=== PATIENT | female | born 1995 | race Caucasian/White ===

== ENCOUNTER 2016-08-18 16:11 | Emergency (ER) | payer MEDICAID ==
[~2016-08-18] VITALS: Ht 160 cm; Wt 72.6 kg
[~2016-08-18 16:11] MED LIST: BCP; BIRTH CONTROL PO; CEPH500C PO; CLIN300C3 PO; CYCL5TAB11 PO; FAMO20TA5 PO; HYDR-3714 PO; HYDR25CA5 PO; HYDR5TAB2 PO; Hydrocodone Bit/Acetaminophen PO; IBUP-1773 PO; LUTERA BIRTH CONTROL PO; NAPR-243 PO; NAPR-684 PO; ONDA-42 SL; ONDAN4ODT PO; PREN1TAB71 PO; TORADOL 10 MG PO; TRAM50TA2 PO
--- OUTSIDE RECORDS SUMMARY | 2016-08-18 16:16 | XMS REPORT | Continuity of Care Document ---
Author Author [facility] Organization [facility] Address Unknown Phone Unavailable Care Team Providers Care Test Borer Helper Name Role Phone PCP Unavailable Source Comments Some departments are not documenting in the electronic medical record. If you do not see the information that you expected, contact Release of Information in the Health Information Management department at [phone] for further assistance in locating additional records.[facility] Active Allergies and Adverse Reactions Allergen Noted Date Severity Reactions Comments Doxycycline 08/24/2014 RASH Current Medications Prescription Sig. Disp. Refills Start End Date Status Date NAPROXEN PO Take 1 Tab by mouth as Active Needed. HYDROcodone/acetaminophen Take 1 Tab by mouth every Active (NORCO; VICODIN) 5-325 mg 4 hours as needed. tablet fluconazole (DIFLUCAN) Take one tab by mouth 2 Tab 0 02/22/20 Active 150 mg tablet now, then repeat dose in 15 72 hrs. Active Problems Problem Noted Date Vaginal discharge 02/14/2015 Depressive disorder, not elsewhere classified 09/15/2014 Unspecified symptom associated with female genital organs 08/24/2014 LLQ pain 08/24/2014 Myalgia and myositis, unspecified 08/24/2014 Coping with chronic pain 08/24/2014 Ilioinguinal neuralgia of left side 08/24/2014 Chronic pain syndrome 08/24/2014 Obesity 08/24/2014 Social History Tobacco Use Types Packs/Day Years Used Date Never Smoker Smokeless Tobacco: Never Used Alcohol Use Drinks/Week oz/Week Comments Yes Last Filed Vital Signs Vital Sign Reading Time Taken Blood Pressure 116/74 02/12/2015 3:07 PM CDT Pulse - - Temperature - - Respiratory Rate - - Height 1.6 m (5' 2.99") 02/12/2015 3:07 PM CDT Weight 81.874 kg (180 lb 8 oz) 02/12/2015 3:07 PM CDT Body Mass Index 31.98 02/12/2015 3:07 PM CDT Oxygen Saturation - - Plan of Care Health Maintenance Due Date Last Done Comments Physical (Comprehensive) 2000 Exam Hpv Vaccines (#1) 2004 Pertussis Vaccine 2004 Tetanus Vaccine 2010 Cervical Cancer Screening 2014 Influenza Vaccine 03/27/2016 Results from Last 3 Months Not on file
[2016-08-18 16:56] LABS: BILIRUBIN,URINE NEGATIVE (NEGATIVE); KETONES,URINE NEGATIVE (NEGATIVE); LEUKOCYTE ESTERASE ,URINE 1+ (NEGATIVE); NITRITE,URINE NEGATIVE (NEGATIVE); PH,URINE 6 (5-9); PROTEIN,URINE NEGATIVE (NEGATIVE); UROBILINOGEN,URINE NORMAL (NORMAL)
[2016-08-18] MEDS ORDERED: AZITHROMYCIN 250 MG TAB (ZITHROMAX) PO ONE (18:30)
[2016-08-18] MEDS ORDERED: LIDOCAINE 1% INJ 20 ML (XYLOCAINE) VIAL INJ ONE (18:30)
[2016-08-18] MEDS ORDERED: cefTRIAXone 1 GM (ROCEPHIN) VIAL IM ONE (18:30)
--- NOTE | 2016-08-18 18:30 | ED GU-Female ---
General Chief Complaint: Abdominal/GI Problems Stated Complaint: ABD PAIN/PELVIC PAIN Nursing Triage Note: LEFT SIDED ABD PAIN FOR A COUPLE OF MONTHS ET NOW COMPLAINS OF RIGHT SIDED ABD PAIN STARTING AT 1600. PT GRABBING AT LEFT SIDE DURING INTERVIEW. HX OF A MISCARRIAGE 2 MONTHS AGO. Nursing Sepsis Screen: No Definite Risk Source: patient Exam Limitations: no limitations History of Present Illness Time seen by provider: 16:23 Initial Comments See nurse's triage note above. This 21-year-old woman presents to the emergency room with worsening lower abdominal pain. Today it is developing in the right lower quadrant and has previously involved the left lower abdomen. She reports having a miscarriage about 2 months ago. It was believed she passed all of the products of conception and an ultrasound was not performed afterward. She has had some vaginal discharge and pain with intercourse. She does have a history of bacterial vaginosis. She denies any nausea, vomiting, diarrhea, fever, constipation, or urinary changes. She has resumed sexual activity after her miscarriage. Allergies and Home Medications Allergies Coded Allergies: doxycycline (Verified Allergy, Unknown, 05/18/14) Constitutional: no symptoms reported EENTM: no symptoms reported Respiratory: no symptoms reported Cardiovascular: no symptoms reported Gastrointestinal: see HPI Genitourinary: see HPI : No Musculoskeletal: no symptoms reported Skin: no symptoms reported Psychiatric/Neurological: No Symptoms Reported Endocrine: No Symptoms Reported Hematologic/Lymphatic: No Symptoms Reported Past Elkcrzs-Ffnvfs-Mnmfir Hx Patient Social History Alcohol Use: Denies Use Recreational Drug Use: No Smoking Status: Never a Smoker Recent Foreign Travel: No Contact w/Someone Who Travel: No Recent Infectious Disease Expo: No Recent Hopitalizations: No Physical Abuse Screen: No Sexual Abuse: No Immunizations Up To Date Tetanus Booster (TDap): Less than 5yrs Date of Pneumonia Vaccine: Apr 28, 2011 Date of Influenza Vaccine: Jun 07, 2014 Surgeries HX Surgeries: Yes (KNEE SCOPESX3, WISDOM TEETH, Cyst removed from bilat ovaries ) Surgeries: Orthopedic Respiratory Hx Respiratory Disorders: No Cardiovascular Hx Cardiac Disorders: No Neurological Hx Neurological Disorders: No Reproductive System : No Hx Reproductive Disorders: Yes (CHRONIC LT PELVIC PAIN) Sexually Transmitted Disease: No HIV/AIDS: No Female Reproductive Disorders: Denies Genitourinary Hx Genitourinary Disorders: No Gastrointestinal Hx Gastrointestinal Disorders: No Musculoskeletal Hx Musculoskeletal Disorders: No Endocrine Hx Endocrine Disorders: No HEENT HX ENT Disorders: No Cancer Hx Cancer: No Psychosocial Hx Psychiatric Problems: No Behavioral Health Disorders: Anxiety Integumentary HX Skin/Integumentary Disorder: No Blood Transfusions Hx Blood Disorders: No Adverse Reaction to a Blood Tr: No Family Medical History Significant Family History: Cancer (brain and breast) Family Medial History: Cancer 03 FATHER Family history: Hypertension 03 FATHER Hypercholesterolemia 03 MOTHER No Family History of: Abdominal aortic aneurysm Enrique's disease Alcoholism Aphasia Physical Exam Vital Signs Vital Sign - Last 12Hours 08/18/16 08/18/16 16:42 18:57 Temp 97.3 Pulse 102 Resp 18 B/P 137/84 Pulse Ox 98 Capillary Refill : Less Than 3 Seconds General Appearance: WD/WN no apparent distress HEENT: PERRL/EOMI normal ENT inspection Neck: normal inspection Cardiovascular: regular rate, rhythm no edema no murmur Respiratory: lungs clear normal breath sounds no respiratory distress no accessory muscle use Gastrointestinal: normal bowel sounds soft tenderness (suprapubic and right lower quadrant, mild) Genital/Rectal: normal genital exam normal vaginal exam Pelvic: normal external exam normal adnexa no cerv. 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 Ultrasound was normal. Pelvic exam was performed due to history of vaginal infections. Due to presence of WBC on the preliminary micro-study, patient was empirically treated with antibiotics. Diagnostic Imaging Diagonstic Imaging: Ultrasound Plain Films/CT/US/NM/MRI: pelvis Comments NAME: TANAY RAYGOZA [facility] REC#: [id number] PT STATUS: DEP ER : 1995 PHYSICIAN: MOSHE TRAYLOR MD ADMIT DATE: 08/18/16/ER Signed Date of Exam: 08/18/16 US NON OB PELVIS COMP/TRANSVAG INDICATION: Miscarriage two months ago. Low abdominal pain. FINDINGS: Transabdominal and transvaginal imaging shows myometrium to be normal. Endometrial stripe is uniform measuring 1 cm. No evidence of retained products. Color Doppler imaging shows no hypervascularity along the endometrium. The right ovary measures 4.7 x 2.3 x 2.7 cm. The left ovary measures 4 x 2.7 x 2.5 cm. There are multiple follicular cysts bilaterally with normal color flow. There is no free fluid in the pelvis. IMPRESSION: Normal pelvic ultrasound with no evidence of retained products of conception. Dictated by: Dictated on workstation # [id number] Dict: 08/18/161908 Trans: 08/18/161934 AS6 [id number] Interpreted by: JAN MCDANIELS MD Electronically signed by:JAN MCDANIELS MD 08/18/161937 Departure Impression Impression: Primary Impression: Pelvic pain Additional Impression: Vaginal discharge Disposition: HOME, SELF-CARE Condition: Stable Departure-Patient Inst. Decision time for Depature: 18:29 Referrals: YVETTE SALOMON MD (PCP/Family) Primary Care Physician Patient Instructions: Acute Pelvic Pain Add. Discharge Instructions: You may take Tylenol and/or ibuprofen for pain. Follow-up with your women's health provider next week to review final culture results. No intercourse or anything vaginally until culture results are reviewed. Return to the emergency room if symptoms worsen. All discharge instructions reviewed with patient and/or family. Voiced understanding. MOSHE TRAYLOR MD Aug 18, 2016 18:30 All discharge instructions reviewed with patient and/or family. Voiced understanding. MOSHE TRAYLOR MD Aug 18, 2016 18:30
[2016-08-18 18:57] VITALS: BP 121/78
--- NOTE | 2016-08-18 19:14 | Diagnostic Imaging Report ---
INDICATION: Miscarriage two months ago. Low abdominal pain. FINDINGS: Transabdominal and transvaginal imaging shows myometrium to be normal. Endometrial stripe is uniform measuring 1 cm. No evidence of retained products. Color Doppler imaging shows no hypervascularity along the endometrium. The right ovary measures 4.7 x 2.3 x 2.7 cm. The left ovary measures 4 x 2.7 x 2.5 cm. There are multiple follicular cysts bilaterally with normal color flow. There is no free fluid in the pelvis. IMPRESSION: Normal pelvic ultrasound with no evidence of retained products of conception. Dictated by: Dictated on workstation # [id number]
[2016-12-04] MEDS ORDERED: HYDR-757 PO (09:17)
[2016-12-04] MEDS ORDERED: IBUP-1773 PO (09:17)
== END 2016-08-18 18:57 | disposition home or self-care (01) ==
LOC: EDUNIT# 16:11 → ER 16:12
DX: R10.2 Pelvic and perineal pain (principal); N89.8 Other specified noninflammatory disorders of vagina
CPT/HCPCS: 36415; 76830; 76856; 81000; 84703; 87070; 87210; 87220; 87491; 87591; 96372

== ENCOUNTER 2016-10-31 18:56 | Emergency (ER) | payer MEDICAID ==
[~2016-10-31] VITALS: Ht 160 cm; Wt 78.5 kg
[2016-10-31 19:57] LABS: BILIRUBIN,URINE NEGATIVE (NEGATIVE); KETONES,URINE NEGATIVE (NEGATIVE); LEUKOCYTE ESTERASE ,URINE 1+ (NEGATIVE); NITRITE,URINE NEGATIVE (NEGATIVE); PH,URINE 7 (5-9); PROTEIN,URINE NEGATIVE (NEGATIVE); UROBILINOGEN,URINE NORMAL (NORMAL)
--- NOTE | 2016-10-31 19:58 | ED Abdominal Pain ---
General Chief Complaint: Abdominal/GI Problems Stated Complaint: PELVIC PAIN Source of Information: Patient History of Present Illness Time Seen By Provider: 19:45 Initial Comments C/O PELVIC PAIN--ONGOING FOR 3 YEARS, AND "CAME BACK" 2 DAYS AGO--IS SIMILAR TO PAIN SHE HAS HAD IN THE PAST STATES PAIN IS WORSE TONIGHT AND STATES "PRESSURE IN MY PELVIC AND ALL ACROSS AND IT'S UNCOMFORTABLE TO WALK" HAS NOT TAKEN ANYTHING FOR PAIN AT ANY TIME. NO FEVER NO NAUSEA/VOMITING/DIARRHEA, HAD A NORMAL BM LAST PM NO URINARY SYMPTOMS LMP--IS SPOTTING NOW, HAD FULL PERIOD SOMETIME LAST MONTH--HAS MIRENA IUD IN PLACE. PT HAD A MISCARRIAGE 05/2016--NO D&C REQUIRED. HAD A DX LAPAROSCOPY FOR THIS PROBLEM 2 YEARS AGO (04/2014)--STATES SHE HAD AN OVARIAN CYSTS, WHICH WERE REMOVED. NO VAGINAL DISCHARGE OR DYSPAREUNIA PT WITH MULTIPLE ER VISITS FOR THIS SAME COMPLAINT--WORK UP'S ESSENTIALLY NEGATIVE EXCEPT FOR OVARIAN CYSTS. PCP: DR. SALOMON PIGMENT PROCESSOR: DR. JONES Allergies and Home Medications Allergies Coded Allergies: doxycycline (Verified Allergy, Unknown, 05/18/14) Review of Systems Constitutional: no symptoms reported, No chills, No diaphoresis, No fever Respiratory: No Symptoms Reported Cardiovascular: No Symptoms Reported Gastrointestinal: See HPI, Denies Nausea, Denies Vomiting Genitourinary: See HPI, Denies Burning, Denies Discharge, Denies Frequency, Denies Flank Pain, Denies Hematuria, Denies Urgency Musculoskeletal: no symptoms reported, No back pain Skin: no symptoms reported Psychiatric/Neurological: No Symptoms Reported Endocrine: No Symptoms Reported Hematologic/Lymphatic: No Symptoms Reported Past Ikmiaxb-Onyjwt-Itahps Hx Patient Social History Recent Foreign Travel: No Contact w/Someone Who Travel: No Recent Hopitalizations: No Immunizations Up To Date Tetanus Booster (TDap): Less than 5yrs Date of Pneumonia Vaccine: Apr 28, 2011 Date of Influenza Vaccine: Jun 07, 2014 Surgeries HX Surgeries: Yes (KNEE SCOPESX3--LEFT X 2, RIGHT X 1, WISDOM TEETH, Cyst removed from bilat ovaries 04/2014) Surgeries: Orthopedic Respiratory Hx Respiratory Disorders: No Cardiovascular Hx Cardiac Disorders: No Neurological Hx Neurological Disorders: No Reproductive System Hx Reproductive Disorders: Yes (CHRONIC PELVIC PAIN) Sexually Transmitted Disease: No HIV/AIDS: No Female Reproductive Disorders: Denies, Ovarian Cyst PIGMENT PROCESSOR History: IUD Genitourinary Hx Genitourinary Disorders: No Gastrointestinal Hx Gastrointestinal Disorders: No Musculoskeletal Hx Musculoskeletal Disorders: No Endocrine Hx Endocrine Disorders: No HEENT HX ENT Disorders: No Cancer Hx Cancer: No Psychosocial Hx Psychiatric Problems: Yes Behavioral Health Disorders: Anxiety Integumentary HX Skin/Integumentary Disorder: No Blood Transfusions Hx Blood Disorders: No Adverse Reaction to a Blood Tr: No Family Medical History Significant Family History: Cancer Family Medial History: Cancer (father has terminal brain cancer. ) 03 FATHER Family history: Hypertension (father ) 03 FATHER Hypercholesterolemia 03 MOTHER No Family History of: Abdominal aortic aneurysm Enrique's disease Alcoholism Aphasia Physical Exam Vital Signs VS - Last 72 Hours, by Label 10/31/16 19:10 Temp 98.5 Pulse 100 Resp 18 B/P (MAP) 138/84 Pulse Ox 97 O2 Delivery Room Air Capillary Refill : General Appearance: WD/WN, no apparent distress, other (WALKS UPRIGHT AND MOVES QUICKLY WITHOUT DIFFUCULTY.SITTING MONTSERRATIAN-STYLE. DOES NOT APPEAR TO BE IN ANY DISCOMFORT AT THIS TIME. 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, no motor/sensory deficits, alert, normal mood/affect, oriented x 3 Skin: normal color, warm/dry Progress/Results/Core Measures Results/Orders Lab Results Laboratory Tests Test 10/31/16 19:50 10/31/16 19:55 Range/Units Urine Color YELLOW Urine Clarity CLEAR Urine pH 7 5-9 Urine Specific [place] 1.015 L 1.016-1.022 Urine Protein NEGATIVE NEGATIVE Urine Glucose (UA) NEGATIVE NEGATIVE Urine Ketones NEGATIVE NEGATIVE Urine Nitrite NEGATIVE NEGATIVE Urine Bilirubin NEGATIVE NEGATIVE Urine Urobilinogen NORMAL NORMAL MG/DL Urine Leukocyte Esterase 1+ H NEGATIVE Urine RBC (Auto) NEGATIVE NEGATIVE Urine RBC NONE /HPF Urine WBC 2-5 /HPF Urine Squamous Epithelial Cells 5-10 /HPF Urine Crystals NONE /LPF Urine Bacteria TRACE /HPF Urine Casts NONE /LPF Urine Mucus NEGATIVE /LPF Urine Culture Indicated NO White Blood Count 8.1 4.3-11.0 10^3/uL Red Blood Count 4.55 4.35-5.85 10^6/uL Hemoglobin 13.8 11.5-16.0 G/DL Hematocrit 41 35-52 % Mean Corpuscular Volume 90 80-99 FL Mean Corpuscular Hemoglobin 30 25-34 PG Mean Corpuscular Hemoglobin Concent 34 32-36 G/DL Red Cell Distribution Width 12.0 10.0-14.5 % Platelet Count 244 130-400 10^3/uL Mean Platelet Volume 9.5 7.4-10.4 FL Neutrophils (%) (Auto) 49 42-75 % Lymphocytes (%) (Auto) 41 12-44 % Monocytes (%) (Auto) 6 0-12 % Eosinophils (%) (Auto) 3 0-10 % Basophils (%) (Auto) 1 0-10 % Neutrophils # (Auto) 4.0 1.8-7.8 X 10^3 Lymphocytes # (Auto) 3.3 1.0-4.0 X 10^3 Monocytes # (Auto) 0.5 0.0-1.0 X 10^3 Eosinophils # (Auto) 0.2 0.0-0.3 10^3/uL Basophils # (Auto) 0.0 0.0-0.1 10^3/uL Sodium Level 142 135-145 MMOL/L Potassium Level 3.8 3.6-5.0 MMOL/L Chloride Level 105 98-107 MMOL/L Carbon Dioxide Level 28 21-32 MMOL/L Anion Gap 9 5-14 MMOL/L Blood Urea Nitrogen 7 7-18 MG/DL Creatinine 0.81 0.60-1.30 MG/DL Estimat Glomerular Filtration Rate > 60 BUN/Creatinine Ratio 9 Glucose Level 99 70-105 MG/DL Calcium Level 9.6 8.5-10.1 MG/DL Total Bilirubin 0.3 0.1-1.0 MG/DL Aspartate Amino Transf (AST/SGOT) 21 5-34 U/L Alanine Aminotransferase (ALT/SGPT) 22 0-55 U/L Alkaline Phosphatase 79 40-136 U/L Total Protein 7.3 6.4-8.2 G/DL Albumin 4.5 3.2-4.5 G/DL My Orders Orders - KENDELL WRAY DO Saline Lock/Iv-Start (10/31/16 19:51) Ct Abdomen/Pelvis W (10/31/16 20:16) Iohexol Injection (Omnipaque 350 Mg/Ml 1 (10/31/16 20:30) Ns (Ivpb) (Sodium Chloride 0.9% Ivpb Bag (10/31/16 20:30) Medications Given in ED Current Medications Medications Dose Ordered Sig/Aime Route Start Time Stop Time Status Last Admin Dose Admin Iohexol 100 ml ONCE ONCE IV 10/31/16 20:30 10/31/16 20:31 DC 10/31/16 20:26 100 ML Sodium Chloride 100 ml ONCE ONCE IV 10/31/16 20:30 10/31/16 20:31 DC 10/31/16 20:26 80 ML Vital Signs/I&O Vital Sign - Last 12Hours 10/31/16 19:10 Temp 98.5 Pulse 100 Resp 18 B/P (MAP) 138/84 Pulse Ox 97 O2 Delivery Room Air Diagnostic Imaging Comments CT ABDOMEN/PELVIS--NO ACUTE PROCESS, PER RADIOLOGIST REPORT @ 2100 Reviewed: Reviewed by Me Departure Impression Impression: Primary Impression: Chronic pelvic pain in female Additional Impression: Urinary tract infection Disposition: HOME, SELF-CARE Condition: Stable Departure-Patient Inst. Referrals: FLAQUITO JONES DANIEL J MD (PCP/Family) Primary Care Physician Patient Instructions: Chronic Pelvic Pain (DC), Urinary Tract Infection, Adult (DC) Add. Discharge Instructions: LOTS OF CLEAR LIQUIDS--NO COFFEE, POP OR TEA FOLLOW UP WITH DR. JONES ON THURSDAY IF NO BETTER All discharge instructions reviewed with patient and/or family. Voiced understanding. Scripts Naproxen (Naproxen) 500 Mg Tablet 500 MG PO BID, #20 TAB Prov: VARUN WRAYA K DO 10/31/16 Ciprofloxacin HCl (Cipro) 500 Mg Tablet 500 MG PO BID, #20 TAB Prov: KENDELL WRAY DO 10/31/16 KENDELL WRAY DO Oct 31, 2016 19:58
[2016-10-31 20:01] LABS: BASOPHILS % (AUTO) 1 % (0-10); EOSINOPHILS # (AUTO) 0.2 10^3/uL (0.0-0.3); EOSINOPHILS % (AUTO) 3 % (0-10); LYMPHOCYTES # (AUTO) 3.3 X 10^3 (1.0-4.0); LYMPHOCYTES % (AUTO) 41 % (12-44); MEAN CORPUSCULAR HEMOGLOBIN 30 PG (25-34); MEAN CORPUSCULAR HGB CONC 34 G/DL (32-36); MEAN CORPUSCULAR VOLUME 90 FL (80-99); MEAN PLATELET VOLUME 9.5 FL (7.4-10.4); MONOCYTES # (AUTO) 0.5 X 10^3 (0.0-1.0); MONOCYTES % (AUTO) 6 % (0-12); NEUTROPHILS % (AUTO) 49 % (42-75); PLATELET COUNT 244 10^3/uL (130-400); RED BLOOD COUNT 4.55 10^6/uL (4.35-5.85); WHITE BLOOD COUNT 8.1 10^3/uL (4.3-11.0)
[2016-10-31 20:25] LABS: ALANINE AMINOTRANSFERASE 22 U/L (0-55); ALBUMIN 4.5 G/DL (3.2-4.5); ANION GAP 9 MMOL/L (5-14); ASPARTATE AMINO TRANSFERASE 21 U/L (5-34); BILIRUBIN,TOTAL 0.3 MG/DL (0.1-1.0); BLOOD UREA NITROGEN 7 MG/DL (7-18); BUN/CREATININE RATIO 9; CALCIUM 9.6 MG/DL (8.5-10.1); CARBON DIOXIDE 28 MMOL/L (21-32); CHLORIDE 105 MMOL/L (98-107); CREATININE SERUM 0.81 MG/DL (0.60-1.30); GFR ESTIMATED > 60; GLUCOSE 99 MG/DL (70-105); POTASSIUM 3.8 MMOL/L (3.6-5.0); SODIUM 142 MMOL/L (135-145); TOTAL PROTEIN 7.3 G/DL (6.4-8.2)
[2016-10-31] MEDS ORDERED: NS 100 ML (IVPB) BAG IV ONE (20:30)
[2016-10-31] MEDS ORDERED: IOHEXOL 350 MG/ML 100 ML (OMNIPAQUE 350) VIAL IV ONE (20:30)
--- NOTE | 2016-10-31 20:57 | Diagnostic Imaging Report ---
PROCEDURE: CT abdomen and pelvis with contrast. TECHNIQUE: Multiple contiguous axial images were obtained through the abdomen and pelvis after administration of intravenous contrast. INDICATION: Pelvic pain and abdominal pressure Lung bases are clear. Liver is normal. Gallbladder is present. There is a large amount of food residue in the stomach. Spleen is not enlarged. Pancreas is normal. Kidneys and adrenals are normal. Appendix is normal. Large and small intestines appear normal. There is no intraperitoneal free air or free fluid. There is an IUD in uterus. Adnexa appear normal. IMPRESSION: Negative CT abdomen and pelvis. There is food residue in the stomach. There is probable constipation. Dictated by: Dictated on workstation # [id number]
[2016-10-31] MEDS ORDERED: CIPR-225 PO (21:15)
[2016-10-31] MEDS ORDERED: NAPR500T3 PO (21:15)
[2016-10-31] MEDS ORDERED: KETOROLAC 30 MG/ML VIAL IVP ONE (21:15)
[2016-10-31] MEDS ORDERED: LEVOFLOXACIN 500 MG TAB (LEVAQUIN) PO ONE (21:15)
[2016-10-31] MEDS ORDERED: LEVOFLOXACIN 500 MG TAB (LEVAQUIN) ONE (21:30)
[2016-10-31] MEDS ORDERED: KETOROLAC 30 MG/ML VIAL ONE (21:30)
[2016-10-31 21:40] VITALS: BP 124/70
[2016-12-04] MEDS ORDERED: IBUP-1773 PO (09:17)
[2016-12-04] MEDS ORDERED: HYDR-757 PO (09:17)
--- OUTSIDE RECORDS SUMMARY | 2016-12-07 04:07 | XMS REPORT | Continuity of Care Document ---
Author Author [facility] Organization [facility] Address Unknown Phone Unavailable Care Team Providers Care Executive Candidate Developer Name Role Phone PCP Unavailable Source Comments Some departments are not documenting in the electronic medical record. If you do not see the information that you expected, contact Release of Information in the Health Information Management department at [phone] for further assistance in locating additional records.[facility] Active Allergies and Adverse Reactions Allergen Noted [...] 2010 Cervical Cancer Screening 2014 Influenza Vaccine 03/27/2017 Results from Last 3 Months Not on file
--- OUTSIDE RECORDS SUMMARY | 2016-12-07 04:09 | XMS REPORT | Continuity of Care Document ---
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 platelet count (count/volume) 244 10*3/uL 130-400 Automated blood platelet mean volume measurement 9.5 [foz_us ] 7.4-10.4 Automated blood neutrophils/100 leukocytes 49 % 42-75 Automated blood lymphocytes/100 leukocytes 41 % 12-44 Blood monocytes/100 leukocytes 6 % 0-12 Automated blood eosinophils/100 leukocytes 3 % 0-10 Automated blood basophils/100 leukocytes 1 % 0-10 Blood neutrophils automated count (number/volume) 4.0 10*3 1.8-7.8 Blood lymphocytes automated count (number/volume) 3.3 10*3 1.0-4.0 Blood monocytes automated count (number/volume) 0.5 10*3 0.0-1.0 Automated eosinophil count 0.2 10*3/uL 0.0-0.3 Automated blood basophil count (count/volume) 0.0 10*3/uL 0.0-0.1 Comprehensive metabolic panel - 10/31/16 19:55 Serum or plasma sodium measurement (moles/volume) 142 mmol/ L 135-145 Serum or plasma potassium measurement (moles/volume) 3.8 mmol/L 3.6-5.0 Serum or plasma chloride measurement (moles/volume) 105 mmol /L 98-107 Carbon dioxide 28 mmol/L 21-32 Serum or plasma anion gap determination (moles/volume) 9 mmol/L 5-14 Serum or plasma urea nitrogen measurement (mass/volume) 7 mg /dL 7-18 Serum or plasma creatinine measurement (mass/volume) 0.81 mg /dL 0.60-1.30 Serum or plasma urea nitrogen/creatinine mass ratio 9 NRG Serum or plasma creatinine measurement with calculation of estimated glomerular filtration rate > NRG Serum or plasma glucose measurement (mass/volume) 99 mg/dL 70-105 Serum or plasma calcium measurement (mass/volume) 9.6 mg/dL 8.5-10.1 Serum or plasma total bilirubin measurement (mass/volume) 0.3 mg/dL 0.1-1.0 Serum or plasma alkaline phosphatase measurement (enzymatic activity/volume) 79 U/L 40-136 Serum or plasma aspartate aminotransferase measurement (enzymatic activity/ volume) 21 U/L 5-34 Serum or plasma alanine aminotransferase measurement (enzymatic activity/volume ) 22 U/L 0-55 Serum or plasma protein measurement (mass/volume) 7.3 g/dL 6.4-8.2 Serum or plasma albumin measurement (mass/volume) 4.5 g/dL 3.2-4.5 Urine beta human chorionic gonadotropin (hCG) measurement - 12/04/16 07:30 Urine beta human chorionic gonadotropin (hCG) measurement NEGATIVE NEGATIVE Methicillin resistant Staphylococcus aureus (MRSA) screening culture - 07:50 Methicillin resistant Staphylococcus aureus (MRSA) screening culture NEG NRG Complete blood count (CBC) with automated white blood cell (WBC) differential - 12/04/16 07:56 Blood leukocytes automated count (number/volume) 8.3 10*3/ uL 4.3-11.0 Blood erythrocytes automated count (number/volume) 4.72 10*6 /uL 4.35-5.85 Venous blood hemoglobin measurement (mass/volume) 14.4 g/dL 11.5-16.0 Blood hematocrit (volume fraction) 43 % 35-52 Automated erythrocyte mean corpuscular volume 91 [foz_us] 80-99 Automated erythrocyte mean corpuscular hemoglobin (mass per erythrocyte) 31 pg 25-34 Automated erythrocyte mean corpuscular hemoglobin concentration measurement ( mass/volume) 34 g/dL 32-36 Automated erythrocyte distribution width ratio 12.0 % 10.0-14.5 Automated blood platelet count (count/volume) 215 10*3/uL 130-400 Automated blood platelet mean volume measurement 10.5 [foz_ us] 7.4-10.4 Automated blood neutrophils/100 leukocytes 48 % 42-75 Automated blood lymphocytes/100 leukocytes 41 % 12-44 Blood monocytes/100 leukocytes 5 % 0-12 Automated blood eosinophils/100 leukocytes 6 % 0-10 Automated blood basophils/100 leukocytes 1 % 0-10 Blood neutrophils automated count (number/volume) 3.9 10*3 1.8-7.8 Blood lymphocytes automated count (number/volume) 3.4 10*3 1.0-4.0 Blood monocytes automated count (number/volume) 0.5 10*3 0.0-1.0 Automated eosinophil count 0.5 10*3/uL 0.0-0.3 Automated blood basophil count (count/volume) 0.1 10*3/uL 0.0-0.1 Blood type T Indirect antibody screen panel - 12/04/16 07:56 ABO+Rh group AP NRG Transfusion band number [id number] NRG Blood group antibody screen NEGATIVE NRG Encounters ACCT No. Visit Date/Time Discharge Status Pt. Type Provider Facility Loc./Unit Complaint [id number] 07/09/2012 15:23:00 07/09/2012 23: 59:59 CLS Outpatient PARISA LUCIO APRN [id number] 04/22/2012 09:10:00 04/22/2012 23: 59:59 CLS Outpatient
== END 2016-10-31 21:38 | disposition home or self-care (01) ==
LOC: EDUNIT# 18:56 → ER 18:59
DX: R10.2 Pelvic and perineal pain (principal); G89.29 Other chronic pain; N39.0 Urinary tract infection, site not specified; Z97.5 Presence of (intrauterine) contraceptive device
CPT/HCPCS: 36415; 74177; 80053; 81000; 84703; 85025; 87088; 96374

== ENCOUNTER 2016-12-03 05:33 | Outpatient (CLI) | payer MEDICAID ==
[~2016-12-03] VITALS: Ht 160 cm; Wt 75.3 kg
[~2016-12-03 05:33] MED LIST changes: +CIPR-225 PO; +NAPR500T3 PO
[2016-12-04] MEDS ORDERED: HYDR-757 PO (09:17)
[2016-12-04] MEDS ORDERED: IBUP-1773 PO (09:17)
== END 2016-12-03 10:17 ==
LOC: PREOP 05:33
PROVIDERS: ATTEND Obstetrics & Gynecology
DX: Z01.818 Encounter for other preprocedural examination (principal); R10.2 Pelvic and perineal pain; R10.32 Left lower quadrant pain

== ENCOUNTER 2016-12-04 07:27 | Day surgery (SDC) | payer MEDICAID ==
[~2016-12-04] VITALS: Ht 160 cm; Wt 75.3 kg
[2016-12-04] MEDS: LACTATED RINGERS 1,000 ML IV PRN ×2 (08:00→10:39)
[2016-12-04] MEDS ORDERED: MIDAZOLAM 2 MG/2 ML (VERSED) VIAL IV ONE (08:00)
[2016-12-04 08:03] LABS: BASOPHILS # (AUTO) 0.1 10^3/uL (0.0-0.1); BASOPHILS % (AUTO) 1 % (0-10); EOSINOPHILS # (AUTO) 0.5 10^3/uL (0.0-0.3); EOSINOPHILS % (AUTO) 6 % (0-10); LYMPHOCYTES # (AUTO) 3.4 X 10^3 (1.0-4.0); LYMPHOCYTES % (AUTO) 41 % (12-44); MEAN CORPUSCULAR HEMOGLOBIN 31 PG (25-34); MEAN CORPUSCULAR HGB CONC 34 G/DL (32-36); MEAN CORPUSCULAR VOLUME 91 FL (80-99); MEAN PLATELET VOLUME 10.5 FL (7.4-10.4); MONOCYTES # (AUTO) 0.5 X 10^3 (0.0-1.0); MONOCYTES % (AUTO) 5 % (0-12); NEUTROPHILS # (AUTO) 3.9 X 10^3 (1.8-7.8); NEUTROPHILS % (AUTO) 48 % (42-75); PLATELET COUNT 215 10^3/uL (130-400); RED BLOOD COUNT 4.72 10^6/uL (4.35-5.85); WHITE BLOOD COUNT 8.3 10^3/uL (4.3-11.0)
[2016-12-04] MEDS ORDERED: ROCURONIUM 50 MG/5 ML (ZEMURON) VIAL IV ONE ×2 (08:13→10:16)
[2016-12-04] MEDS ORDERED: fentaNYL INJECTION 100 MCG/2 ML AMP ONE (08:13)
[2016-12-04] MEDS ORDERED: proPOfol 200 MG/20 ML (DIPRIVAN) VIAL IV ONE (08:13)
[2016-12-04] MEDS ORDERED: LIDOCAINE PF 2% 10 ML (XYLOCAINE) AMP ONE (08:21)
[2016-12-04 08:37] VITALS: BP 119/86
[2016-12-04] MEDS ORDERED: VASOPRESSIN INJECTION 20 UNIT/ML VIAL ONE (08:52)
[2016-12-04] MEDS ORDERED: BUPIVACAINE 0.25% 30 ML (SENSORCAINE) VIAL ONE (08:52)
[2016-12-04] MEDS ORDERED: ESTROGENS CONJ. CREAM 30 GM (PREMARIN) TUBE ONE (08:52)
[2016-12-04] MEDS ORDERED: NS (IVPB) 0 ML ONE (08:53)
[2016-12-04] MEDS ORDERED: D5 LR IV SOLUTION 1,000 ML IV SCH ×2 (08:57→09:14)
--- NOTE | 2016-12-04 08:57 | Progress Note-Pre Operative ---
Pre-Operative Progress Note H&P Reviewed The H&P was reviewed, patient examined and no changes noted. Date H&P Reviewed: December 04, 2016 Time H&P Reviewed: 08:55 Pre-Operative Diagnosis: HERNAN, FLAQUITO HYDE DO December 04, 2016 8:56 am
[2016-12-04] MEDS ORDERED: ONDANSETRON 4 MG/2 ML (SDV) Z0FRAN IV PRN (09:00)
[2016-12-04] MEDS ORDERED: BENZOCAINE/MENTHOL (DERMOPLAST) 56 ML CAN TP PRN (09:00)
[2016-12-04] MEDS ORDERED: KETOROLAC 30 MG/ML VIAL IV SCH (09:00)
[2016-12-04] MEDS ORDERED: HYDROcodone/APAP 5 MG/325 MG (LORTAB) TAB PO PRN ×2 (09:00→09:15)
[2016-12-04] MEDS ORDERED: morphine INJ 10 MG/ML 1ML (SYR OR VIAL) IV PRN (09:00)
[2016-12-04] MEDS ORDERED: ONDANSETRON 4 MG/2 ML (SDV) Z0FRAN IVP PRN ×2 (09:15→10:45)
[2016-12-04] MEDS ORDERED: KETOROLAC 30 MG/ML VIAL IVP ONE (09:15)
[2016-12-04] MEDS ORDERED: IBUPROFEN 600 MG (MOTRIN) TAB PO PRN (09:15)
[2016-12-04] MEDS ORDERED: HYDR-757 PO (09:17)
[2016-12-04] MEDS ORDERED: IBUP-1773 PO (09:17)
--- NOTE | 2016-12-04 09:18 | Discharge Inst-Women's Service ---
Discharge Inst-Women's Serv Depart Medication/Instructions New, Converted or Re-Newed RX: RX on Chart Consults/Follow Up Additional Follow Up: Yes Orders/Referrals RTC in [address] Mercado Activity Activity: Activity as Tolerated NO SMOKING: NO SMOKING Nothing Inside Vagina: No Douching, No Eland, No Tampons Diet Discharge Diet: No Restrictions Symptoms to Report to : Bleeding Excessive, Pain Increased, Fever Over 101 Degrees F, Vaginal Bleeding Increase, Questions/Concerns For Any Problems or Questions: Contact Your Physician Skin/Wound Care Infection Signs and Symptoms: Increased Redness, Foul Odor of Wound, Increased Drainage, Skin Itchy or Has a Rash, Increased Swelling, Temperature Above 101 F Operative Area Clean and Dry: Keep Incision Clean/Dry Stitches/Carole/Dermabond: Dermabond, Care of Stitches Bathing Instructions: FLAQUITO Hadn DO December 04, 2016 09:18
[2016-12-04] MEDS ORDERED: NEOSTIGMINE (BLOXIVERZ ) 1 MG/1ML 10 ML VIAL ONE (10:16)
[2016-12-04] MEDS ORDERED: GLYCOPYRROLATE 0.2 MG/ML (ROBINUL) 2 ML VIAL ONE (10:16)
[2016-12-04] MEDS ORDERED: ONDANSETRON 4 MG/2 ML (SDV) Z0FRAN ONE (10:16)
[2016-12-04] MEDS ORDERED: LACTATED RINGERS 2,000 ML IV ONE (10:16)
[2016-12-04] MEDS ORDERED: KETOROLAC 30 MG/ML VIAL ONE (10:16)
[2016-12-04] MEDS ORDERED: DEXAMETHASONE PF 10 MG/ML (DECADRON) VIAL ONE (10:16)
[2016-12-04] MEDS ORDERED: SEVOFLURANE (ULTANE) 15 ML INHAL SOLN ONE (10:16)
[2016-12-04] MEDS ORDERED: morphine INJ 10 MG/ML 1ML (SYR OR VIAL) ONE (10:42)
[2016-12-04] MEDS ORDERED: HYDROmorphone (DILAUDID) 2 MG/ML VIAL IVP PRN (10:45)
[2016-12-04] MEDS: morphine INJ 10 MG/ML 1ML (SYR OR VIAL) IVP PRN ×2 (10:50→10:56)
[2016-12-04 11:20] VITALS: BP 113/69
[2016-12-04 11:50] VITALS: BP 104/66
[2016-12-04 12:30] VITALS: BP 96/60
--- NOTE | 2016-12-04 12:47 | OPERATIVE REPORT ---
DATE OF SERVICE: 12/04/2016 PREOPERATIVE DIAGNOSES: 1. A 21-year-old female with chronic pelvic pain. 2. Left-sided lower quadrant pain. POSTOPERATIVE DIAGNOSES: 1. A 21-year-old female with chronic pelvic pain. 2. Left-sided lower quadrant pain. 3. Left ovarian cyst and adhesions of the descending colon to the left adnexa and left pelvic sidewall. PROCEDURE: Operative laparoscopy with left ovarian cystotomy, lysis of adhesions. SURGEON: Joe Mercado DO INVESTOR RELATIONS SPECIALIST: Michelle MUNIZ, who was necessary during the procedure for retraction and manipulation of vital structures. ANESTHESIA: General endotracheal. ESTIMATED BLOOD LOSS: Minimal. URINE OUTPUT: 50 mL during the procedure. FLUIDS: 1400 mL of lactated Ringer's solution. FINDINGS: There was a grossly normal appearing right ovary. The left ovary appears polycystic, however, with no definitive solitary dominant follicle or cyst. Adhesions of the left ovary to the left pelvic sidewall as well as adhesions of the descending sigmoid colon to the left pelvic sidewall and the left adnexa. SPECIMENS SENT: None. INDICATIONS FOR PROCEDURE: This 21-year-old female patient has been established through my practice for approximately 2 years now. We have been dealing with chronic pelvic pain on and off for the past 2 years. She underwent Mirena placement a couple of years ago at which point she thought that this chronic pelvic pain that had returned was secondary to her Mirena so we removed it, however, the pain persisted so she did have another Mirena placed. In the meantime, the patient reports that it comes and goes, however, for the past 2-3 months, the pain has been significant enough to cause her to go to the Emergency Department at times. I discussed with the patient more conservative treatment measures due to a normal ultrasound and a normal finding of the IUD in place, however, she wished to go with more aggressive measures and undergo diagnostic laparoscopy. The risks of this procedure were discussed with the patient in detail including bleeding, infection, damage to surrounding structures including, but not limited to bowel, bladder, ureter, kidneys, possible removal of any pelvic structures or organs that may be encountered that are pathologic in nature, the risk of blood transfusion, risk for laparotomy, postoperative hematoma formation, DVT and even . After all the patient's questions were answered pertaining to the risks of the procedure, and the recovery timeframe, consent was obtained in the preoperative area with her present and the patient was taken to the operating room. OP REPORT IN DETAIL: Once in the operating room, general anesthesia was found to be adequate. She was placed in the dorsal lithotomy position and prepped and draped in the normal sterile fashion. A timeout was performed. I first examined the patient under anesthesia. There is left-sided adnexal fullness, however, uterus and the right adnexa appear normal on bimanual examination. A Romero catheter was placed using the sterile technique. I also placed a sponge stick into the vagina for uterine manipulation during laparoscopy. I then performed a change of gloves, and took my attention to the abdomen where infraumbilically I infiltrated the area using 0.25% Marcaine and made a 5 mm incision using a knife. I introduced the Veress needle through this incision and intraperitoneal placement was confirmed using the saline drop test. I then proceeded with insufflation using CO2 gas to an opening pressure of 4 mmHg. I proceeded to a maximum pressure of 15 mmHg at which time I removed the Veress needle and introduced the 5 mm blunt trocar. Once this was in place, I am able to confirm intraperitoneal placement using the laparoscope. I then had the patient placed in steep Trendelenburg which allowed me to visualize the pelvic anatomy as well as a normal appendix in the right lower quadrant. I then visualized all my findings described above. Using monopolar terrence, I am able to take down the adhesions to the left pelvic sidewall as well as take down the adhesions of the ovary to the left pelvic sidewall as well. Once these are taken down, I used the monopolar terrence to open up several of the ovarian cysts that are enlarging the ovarian capsule itself on the left side. The right ovary and right adnexa were evaluated as well and found to be normal. There is no evidence of endometriosis of the serosal surface anywhere. Due to treatment of the underlying found pathology and no other pathology found, I then deemed the procedure complete at that point. I copiously irrigated the pelvis with normal saline. There was no active bleeding noted from any of my dissection planes. I then released insufflation through the 2 trocar sites in order to complete the procedure. I did place a suprapubic trocar 5 mm and did my dissection through this trocar as well as previously mentioned. Both of these trocars are then removed from the abdomen after insufflation is released. They are closed using Dermabond. The sponge stick and the Romero catheter were then removed. The patient tolerated the procedure well and was taken to the recovery room in stable condition. Lap and sponge counts correct at the end of the procedure. Instrument count was correct as well. Job ID: [id number] DocumentID: [id number] Dictated Date: 12/04/2016 10:34:47 Nutrition Specialist Date: 12/04/2016 11:32:35 Dictated By: DO CHENCHO RIVERA
[2016-12-04 13:39] VITALS: BP 96/60
[2016-12-05] MEDS ORDERED: IBUPROFEN 600 MG (MOTRIN) TAB PO SCH (08:00)
[2016-12-05] MEDS ORDERED: DOCUSATE SODIUM 100 MG (COLACE) CAP PO SCH (09:00)
== END 2016-12-04 13:40 | disposition home or self-care (01) ==
LOC: SDC 07:27
PROVIDERS: ATTEND Obstetrics & Gynecology
DX: N83.02 Follicular cyst of left ovary (principal); N73.6 Female pelvic peritoneal adhesions (postinfective)
CPT/HCPCS: 36415; 84703; 85025; 86850; 86900; 86901; 87081; 94664

== ENCOUNTER 2017-02-09 22:33 | Emergency (ER) | payer MEDICAID ==
[~2017-02-09] VITALS: Ht 160 cm; Wt 77.1 kg
[~2017-02-09 22:33] MED LIST changes: +HYDR-757 PO; -NAPR500T3 PO; +NAPR500T4 PO
--- NOTE | 2017-02-09 23:20 | ED GU-Female ---
General Chief Complaint: -Female Stated Complaint: LT SIDED PELVIC PAIN,LT THIGH PAIN Nursing Triage Note: PT TO ED 8 W/ C/O CHRONIC PELVIC PAIN X4 YRS, WORSE OVER PAST WEEK. REPORTS SHE HAD A "PELVIC SCOPE" LAST MOS BY DR JONES FOR C/O BUT DENIES IMPROVEMENT. Nursing Sepsis Screen: No Definite Risk Source: patient Exam Limitations: no limitations History of Present Illness Time seen by provider: 23:18 Initial Comments Patient present to ER by private conveyance with a chief complaint of pain in her left lower pelvis and thigh area. She reports the pain is a 7-8 out of 10 and is a chronic pain she's been dealing with for the past 3 almost 4 years. She has had a recent pelvic scope in September and a cyst removed of her left ovary which helped her pain tremendously. At home she has hydrocodone which she did not take neck is she was at work. She did have her take 400 mg ibuprofen tonight which helped a little with her pain bringing it down about 1-2 points. She was having some nausea earlier but none presently. She denies discharge or dysuria. She is seen frequently by Dr. JONES for her symptoms. She states she has a Mirena but she's not sure if it still in place after the scope in September. Allergies and Home Medications Allergies Coded Allergies: doxycycline (Verified Allergy, Unknown, 05/18/14) Home Medications Hydrocodone/Acetaminophen 1 Each Tablet, 1 EACH PO Q3HR PRN for PAIN-MODERATE TO SEVERE, #50 Prescribed by: FLAQUITO JONES on 12/04/16916 Ibuprofen 600 Mg Tablet, 600 MG PO Q6H, #60 Ref 0 Prescribed by: FLAQUITO JONES on 12/04/16916 Constitutional: No chills, No diaphoresis, No fever, No malaise Respiratory: No cough, No short of breath Cardiovascular: No chest pain, No edema Gastrointestinal: see HPI, abdominal pain, No constipation, No diarrhea, nausea , No vomiting Genitourinary: denies burning, denies discharge, denies dysuria, denies frequency : No (Mirena) LMP: Jan 27, 2017 Musculoskeletal: No back pain, No joint pain Skin: No pruritus, No rash Psychiatric/Neurological: Denies Headache, Denies Numbness Past Vfbbinw-Hpqaox-Awetdp Hx Patient Social History Alcohol Use: Denies Use Recreational Drug Use: No Smoking Status: Never a Smoker 2nd Hand Smoke Exposure: No Recent Foreign Travel: No Contact w/Someone Who Travel: No Recent Infectious Disease Expo: No Recent Hopitalizations: No Immunizations Up To Date Tetanus Booster (TDap): Less than 5yrs Date of Pneumonia Vaccine: Apr 28, 2011 Date of Influenza Vaccine: Jun 07, 2016 Seasonal Allergies Seasonal Allergies: No Surgeries HX Surgeries: Yes (knee sx x3, wisdom teeth, DXLS, ) Surgeries: Orthopedic Respiratory Hx Respiratory Disorders: No Cardiovascular Hx Cardiac Disorders: No Neurological Hx Neurological Disorders: No Reproductive System Hx Reproductive Disorders: Yes (CHRONIC PELVIC PAIN) Sexually Transmitted Disease: No HIV/AIDS: No Female Reproductive Disorders: Denies, Ovarian Cyst 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 ) 03 FATHER Family history: Hypertension (father ) 03 FATHER Hypercholesterolemia 03 MOTHER No Family History of: Abdominal aortic aneurysm Taney's disease Alcoholism Aphasia Physical Exam Vital Signs Vital Sign - Last 12Hours 02/09/17 23:04 Temp 98.8 Pulse 100 Resp 20 B/P (MAP) 123/92 Pulse Ox 99 O2 Delivery Room Air Capillary Refill : Less Than 3 Seconds General Appearance: WD/WN, no apparent distress HEENT: PERRL/EOMI, pharynx normal Cardiovascular: normal peripheral pulses, regular rate, rhythm Respiratory: lungs clear, normal breath sounds Gastrointestinal: soft, no organomegaly, tenderness (left lower quadrant mild) Back: normal inspection, no CVA tenderness Extremities: no calf tenderness, normal capillary refill Neurologic/Psychiatric: oriented x 3 Skin: normal color, warm/dry Progress/Results/Core Measures Results/Orders Lab Results Laboratory Tests Test 02/09/17 23:18 Range/Units Urine Color YELLOW Urine Clarity CLEAR Urine pH 6.5 5-9 Urine Specific [place] 1.010 L 1.016-1.022 Urine Protein NEGATIVE NEGATIVE Urine Glucose (UA) NEGATIVE NEGATIVE Urine Ketones NEGATIVE NEGATIVE Urine Nitrite NEGATIVE NEGATIVE Urine Bilirubin NEGATIVE NEGATIVE Urine Urobilinogen NORMAL NORMAL MG/DL Urine Leukocyte Esterase 1+ H NEGATIVE Urine RBC (Auto) NEGATIVE NEGATIVE Urine RBC RARE /HPF Urine WBC 2-5 /HPF Urine Squamous Epithelial Cells 5-10 /HPF Urine Crystals NONE /LPF Urine Bacteria FEW H /HPF Urine Casts NONE /LPF Urine Mucus NEGATIVE /LPF Urine Culture Indicated YES Urine Test NEGATIVE NEGATIVE My Orders Orders - KEEGAN RIVAS Hcg,Qualitative Urine (02/09/17 23:22) Ua Culture If Indicated (02/09/17 23:22) Ketorolac Injection (Toradol Injection) (02/09/17 23:22) Promethazine Injection (Phenergan Injec (02/09/17 23:30) Urine Culture (02/09/17 23:18) Medications Given in ED Current Medications Medications Dose Ordered Sig/Aime Route Start Time Stop Time Status Last Admin Dose Admin Promethazine HCl 25 mg ONCE ONCE IM 02/09/17 23:30 02/09/17 23:31 DC 02/09/17 23:38 25 MG Vital Signs/I&O Vital Sign - Last 12Hours 02/09/17 23:04 Temp 98.8 Pulse 100 Resp 20 B/P (MAP) 123/92 Pulse Ox 99 O2 Delivery Room Air Blood Pressure Mean: 102 Departure Impression Impression: Primary Impression: Urinary tract infection Qualified Codes: N30.00 - Acute cystitis without hematuria Additional Impression: examination or test, negative result Disposition: 01 HOME, SELF-CARE Condition: Improved Departure-Patient Inst. Decision time for Depature: 00:55 Referrals: NO,LOCAL PHYSICIAN (PCP) Primary Care Physician FLAQUITO JONES DO (Family) Primary Care Physician Patient Instructions: Urinary Tract Infection, Adult (DC) Add. Discharge Instructions: Drink plenty of fluids and take your antibiotics. If you start having worsening symptoms such as fevers or nausea and vomiting or can't keep any fluids down you should return to the ER. Otherwise this is a chronic issue that would best be served by following up with your primary care physician. All discharge instructions reviewed with patient and/or family. Voiced understanding. Scripts Nitrofurantoin Monohyd/M-Cryst (Macrobid 100 mg Capsule) 100 Mg Capsule 1 TAB PO BID for 5 Days, #10 TAB 0 Refills Prov: KEEGAN RIVAS 02/10/17 Copy Copies To 1: FLAQUITO JONES TITUS J Feb 09, 2017 23:20
[2017-02-09] MEDS ORDERED: KETOROLAC 60 MG/2 ML VIAL IM STA (23:22)
[2017-02-09 23:28] LABS: BILIRUBIN,URINE NEGATIVE (NEGATIVE); KETONES,URINE NEGATIVE (NEGATIVE); LEUKOCYTE ESTERASE ,URINE 1+ (NEGATIVE); NITRITE,URINE NEGATIVE (NEGATIVE); PH,URINE 6.5 (5-9); PROTEIN,URINE NEGATIVE (NEGATIVE); UROBILINOGEN,URINE NORMAL (NORMAL)
[2017-02-09] MEDS ORDERED: PROMETHAZINE INJ 25 MG/ML (PHENERGAN) AMP IM ONE (23:30)
[2017-02-10] MEDS ORDERED: NITR-65 PO (00:57)
[2017-02-10] MEDS ORDERED: NITROFURANTOIN 100 MG (MACROBID) CAPSULE PO ONE (01:00)
[2017-02-10 01:01] VITALS: BP 0/0
--- OUTSIDE RECORDS SUMMARY | 2017-02-18 19:13 | XMS REPORT | Clinical Summary ---
Author Author [facility] Organization [facility] Address Unknown Phone Unavailable Care Team Providers Care Auto Service Advisor Name Role Phone PCP Unavailable Source Comments Some departments are not documenting in the electronic medical record. If you do not see the information that you expected, contact Release of Information in the Health Information Management department at [phone] for further assistance in locating additional records.[facility] Allergies Active Allergy Reactions Severity Noted Date Comments Doxycycline RASH 08/24/2014 Current Medications Prescription Sig. Disp. Refills Start [...] 08/24/2014 Chronic pain syndrome 08/24/2014 Obesity 08/24/2014 Family History Medical History Relation Name Comments Cancer Father term brain Cancer Maternal term brain Grandmother Relation Name Status Comments Father Maternal Grandmother Social History Tobacco Use Types Packs/Day Years Used Date Never Smoker Smokeless Tobacco: Never Used Alcohol Use Drinks/Week oz/Week Comments Yes Sex Assigned at Date Recorded Not on file Last Filed Vital Signs Vital Sign Reading Time Taken Blood Pressure 116/74 02/12/2015 3:07 PM CDT Pulse - - Temperature - - Respiratory Rate - - Oxygen Saturation - - Inhaled Oxygen - - Concentration Weight 81.9 kg (180 lb 8 oz) 02/12/2015 3:07 PM CDT Height 160 cm (5' 2.99") 02/12/2015 3:07 PM CDT Body Mass Index 31.98 02/12/2015 3:07 PM CDT Plan of Treatment Health Maintenance Due Date Last Done Comments PHYSICAL (COMPREHENSIVE) 2000 EXAM HPV VACCINES (#1) 2004 PERTUSSIS VACCINE 2004 TETANUS VACCINE 2010 CERVICAL CANCER SCREENING 2014 INFLUENZA VACCINE 03/27/2017 Results Not on filefrom Last 3 Months
[2017-05-13] MEDS ORDERED: OXYC-202 PO (13:10)
== END 2017-02-10 01:01 | disposition home or self-care (01) ==
LOC: EDUNIT# 22:33 → ER 22:36
DX: N39.0 Urinary tract infection, site not specified (principal); F41.9 Anxiety disorder, unspecified; Z32.02 Encounter for pregnancy test, result negative; Z80.8 Family history of malignant neoplasm of other organs or systems; Z82.49 Family history of ischemic heart disease and other diseases of the circulatory system
CPT/HCPCS: 81000; 84703; 87088; 96372; 99284

== ENCOUNTER → 2017-02-24 | Outpatient (CLI) | payer MEDICAID ==
[~2017-02-24] MED LIST changes: +NAPR500T3 PO; -NAPR500T4 PO; +NITR-65 PO
--- NOTE | 2017-02-24 12:43 | Diagnostic Imaging Report ---
EXAMINATION: Transabdominal and transvaginal pelvic ultrasound. INDICATION: Left pelvic pain. FINDINGS: The uterus is 8.1 x 4.5 x 3.6 cm. There is an IUD in good position. The endometrial stripe is 0.3 cm in thickness. Nabothian cysts in the cervix are seen. The right ovary is 4.5 x 3.2 x 3 cm. There is a 2.8 cm dominant follicle in the right ovary. The left ovary is 5.4 x 3.1 x 3.9 cm. There is a 2.3 x 2.4 x 2 cm hypoechoic mass with vascularity along its periphery. This may relate to a solid lesion or a hemorrhagic corpus luteum cyst with peripheral flow. Normal flow in the ovaries is seen. IMPRESSION: There is a 2.4 cm hypoechoic lesion in the left ovary with peripheral flow seen. This could be a hemorrhagic corpus luteum cyst with a thickened wall. A followup ultrasound in 6 weeks is recommended to reevaluate. Dictated by: Dictated on workstation # [id number]
== END ==
LOC: RAD 09:32
PROVIDERS: ATTEND Family Medicine
DX: N83.9 Noninflammatory disorder of ovary, fallopian tube and broad ligament, unspecified (principal); Z97.5 Presence of (intrauterine) contraceptive device
CPT/HCPCS: 76830; 76856

== ENCOUNTER → 2017-04-08 | Outpatient (CLI) | payer MEDICAID ==
[~2017-04-08] MED LIST changes: -NAPR500T3 PO; +NAPR500T4 PO; +OXYC-202 PO
--- NOTE | 2017-04-09 08:19 | Diagnostic Imaging Report ---
Transabdominal and transvaginal pelvic ultrasound. INDICATION: Pelvic pain. The patient has an IUD. FINDINGS: The uterus is 8.1 x 5.5 x 3.7 cm in size. Endometrial stripe is 0.3 cm in thickness. There is an IUD which appears in good position. Prominent veins along the periphery of the myometrium are seen with no focal mass. The right ovary is 3.6 x 2.0 x 2.2 cm in size. It is heterogenous. Arterial venous waveforms are demonstrated. The left ovary is 4.9 x 3.3 x 3.2 cm in size. There is heterogeneous solid-appearing lesion within it measuring 3.1 x 3.6 x 2.8 cm and a simple-appearing cyst. Arterial venous waveforms are seen. IMPRESSION: Heterogeneous appearance of both ovaries of uncertain etiology. Underlying early solid lesions are not excluded. Further evaluation with an enhanced MRI of the pelvis is recommended. Report was stat faxed to office of Dr. Perez @ 8:17 AM/sawyer. Dictated by: Dictated on workstation # [id number]
== END ==
LOC: RAD 13:44
PROVIDERS: ATTEND Family Medicine
DX: R10.2 Pelvic and perineal pain (principal)
CPT/HCPCS: 76830; 76856

== ENCOUNTER → 2017-04-17 | Outpatient (CLI) | payer MEDICAID ==
[~2017-04-17] MED LIST changes: +GADOBUTROL 7.5 MMOL/7.5 ML (GADAVIST) VIAL IV ONE
--- NOTE | 2017-04-17 10:46 | Diagnostic Imaging Report ---
PROCEDURE: MRI pelvis with and without contrast. TECHNIQUE: A multiplanar/multisequence MRI of the pelvis was performed with and without contrast. INDICATION: Bilateral heterogenous ovaries on ultrasound. Evaluate for underlying lesions. CONTRAST: 7 mL of Gadovist was administered intravenously. FINDINGS: The left ovary demonstrates a lobulated T2 hypointense mass, isointense on T1, and demonstrating prominent contrast enhancement. It measures 3 x 1.9 x 2.9 cm. It is surrounded at its upper aspect with a cystic lesion which could be an adjacent ovarian cyst or dominant follicle. There is suggestion of a small enhancing nodule in the right ovary measuring 1.4 cm as well. These are probably related to bilateral ovarian solid tumors. The low intensity signal on T2 weighted images is particularly dark which is a feature seen with fibromas and thecomas of the ovaries. There is no evidence of free fluid in the pelvis. There is no lymphadenopathy. There is no suspicious soft tissue mass outside the adnexa or in the uterus. The endometrial stripe is normal in thickness. The junctional zone is slightly thickened in the fundus, suggestive of mild adenomyosis. No focal mass or fibroid is evident. There is an IUD in place. The urinary bladder appears unremarkable. IMPRESSION: There are bilateral ovarian solid masses measuring up to 3 cm on the left and up to 1.4 cm on the right with dark T2 signal and lobulated circumscribed margins. 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 Clinical correlation and gynecologic evaluation would be recommended. The findings were discussed with Dr. Perez by Dr. Sanz at the time of dictation. Dictated by: Dictated on workstation # [id number]
== END ==
LOC: RAD 07:38
PROVIDERS: ATTEND Family Medicine
DX: N83.9 Noninflammatory disorder of ovary, fallopian tube and broad ligament, unspecified (principal)
CPT/HCPCS: 72197

== ENCOUNTER 2017-05-11 11:36 | Outpatient (CLI) | payer MEDICAID ==
[~2017-05-11] VITALS: Ht 160 cm; Wt 77.1 kg
[~2017-05-11 11:36] MED LIST changes: -GADOBUTROL 7.5 MMOL/7.5 ML (GADAVIST) VIAL IV ONE; +NAPR500T3 PO; -NAPR500T4 PO; -OXYC-202 PO
== END 2017-05-11 15:58 ==
LOC: PREOP 11:36
PROVIDERS: ATTEND Obstetrics & Gynecology
DX: Z01.818 Encounter for other preprocedural examination (principal); N83.9 Noninflammatory disorder of ovary, fallopian tube and broad ligament, unspecified; D64.9 Anemia, unspecified

== ENCOUNTER 2017-05-13 11:35 | Day surgery (SDC) | payer MEDICAID ==
[~2017-05-13] VITALS: Ht 160 cm; Wt 77.1 kg
--- OUTSIDE RECORDS SUMMARY | 2017-05-13 11:39 | XMS REPORT | Encounter Summary ---
Author Author [facility] Organization [facility] Address Unknown Phone Unavailable Care Team Providers Care Public Relations Specialist Name Role Phone PCP Unavailable Reason for Visit * Reason Comments Pelvic Pain Establish Care * Consult, Test & Treat (Routine) Status Reason Specialty Diagnoses / Referred By Referred To Procedures Contact Contact No Auth Needed Obstetrics & Diagnoses Marv Perez Ault, Kevin, MD Gynecology Pelvic pain MD [address] NEW PT - PELVIC [address] [place], [place] [address] [address] [address] [place], [place] Phone: [phone] rocedures Phone: NEW PATIENT [phone] Encounter Details Date Type Department Care Team Description 05/05/2017 Office Visit [facility] Ousmane Bach MD Chronic pelvic pain in Physicians - OBGYN [address] female (Primary Dx);Cysts [address] [place] [address] of both ovaries;[place] [address] floor dysfunction;Family [id number] history of breast cancer [phone] Social History Tobacco Use Types Packs/Day Years Used Date Never Smoker Smokeless Tobacco: Never Used Alcohol Use Drinks/Week oz/Week Comments Yes Sex Assigned at Date Recorded Not on file as of this encounter Last Filed Vital Signs Vital Sign Reading Time Taken Blood Pressure 130/77 05/05/2017 9:42 AM CDT Pulse 88 05/05/2017 9:42 AM CDT Temperature - - Respiratory Rate - - Oxygen Saturation - - Inhaled Oxygen - - Concentration Weight 79.7 kg (175 lb 12.8 oz) 05/05/2017 9:42 AM CDT Height 161.5 cm (5' 3.6") 05/05/2017 9:42 AM CDT Body Mass Index 30.56 05/05/2017 9:42 AM CDT in this encounter Progress Notes * Ousmane Bach MD - 05/05/2017 9:30 AM CDT Formatting of this note may be different from the original. Date of Service: 05/05/2017 Subjective: Sheryl Marcial is a 21 y.o. female. History of Present Illness Ms. Car comes in today as a consult from Dr. Marv Perez's office (see scanned records.) She is a 21 yo G 2 P 1 LMP 04-10-2017. Over the past few months she has ultrasounds and an MRI showing small bilateral ovarian cysts. On the February 2017 both cysts were approximately 2-3 cm in size. On an MRI done in Mar 2017 these were approximately the same size. Patient had a laparoscopy done in November 2016 and the operative note is also scanned into [facility] EMR. Patient had previously seen Dr. Chavez in our department for chronic pelvic pain. Patient has pelvic pain L > R and happens several times a week. She describes the pain as "poking" or stabbing. Patient denies aggravating factors such as prolonged standing or lifting. Pain is relieved with NSAIDs and narcotics. She denies dyspareunia, dyschezia and dysmenorrhea. Review of Systems Constitutional: Negative. Negative for fatigue, fever and unexpected weight change. HENT: Negative. Eyes: Negative. Respiratory: Negative. Negative for cough and shortness of breath. Cardiovascular: Negative. Negative for chest pain and leg swelling. Gastrointestinal: Negative. Negative for abdominal pain, blood in stool, constipation, diarrhea, nausea and vomiting. Endocrine: Negative. Genitourinary: Positive for frequency and pelvic pain. Negative for difficulty urinating, dyspareunia, dysuria, enuresis, genital sores, hematuria, menstrual problem, urgency, vaginal bleeding, vaginal discharge and vaginal pain. Musculoskeletal: Negative. Negative for arthralgias and back pain. Skin: Negative. Allergic/Immunologic: Negative. Neurological: Negative. Negative for light-headedness and headaches. Hematological: Negative. Negative for adenopathy. Does not bruise/bleed easily. Psychiatric/Behavioral: Negative. Negative for confusion. The patient is not nervous/anxious. All other systems reviewed and are negative. Objective: clindamycin(+) (CLEOCIN T) 1 % topical gel Apply topically to affected area daily. NO HOME MEDICATIONS Vitals: 05/05/17 0942 BP: 130/77 Pulse: 88 Weight: 79.7 kg (175 lb 12.8 oz) Height: 161.5 cm (63.6") Body mass index is 30.56 kg/(m^2). Physical Exam Constitutional: She is oriented to person, place, and time. She appears well- developed and well-nourished. HENT: Head: Normocephalic and atraumatic. Eyes: Conjunctivae are normal. Pulmonary/Chest: Effort normal. Abdominal: Soft. She exhibits no distension. There is no tenderness. There is no rebound and no guarding. Genitourinary: There is no rash, tenderness or lesion on the right labia. There is no rash, tenderness or lesion on the left labia. Uterus is not enlarged and not tender. Cervix exhibits no motion tenderness. Right adnexum displays no mass , no tenderness and no fullness. Left adnexum displays no mass, no tenderness and no fullness. There is tenderness in the vagina. Genitourinary Comments: increased tone and tenderness in pelvic floor musculature, L > R Neurological: She is alert and oriented to person, place, and time. Skin: Skin is warm and dry. Psychiatric: She has a normal mood and affect. Her behavior is normal. Judgment and thought content normal. Nursing note and vitals reviewed. Assessment and Plan: I reviewed outside imaging and operative reports. It seems likely these are physiological cysts. No endometriosis on recent laparoscopy. No biopsies were done at that surgery but it appears that patient just had KLAEY and cyst drainage. Patient is specifically concerned about cancer because of her [facility]'s history of breast cancer. Ovarian cancer would be quite rare in a women in her early 20s, and no signs of cancer were found at laparoscopy. Patient does have increased pelvic tone based on today's exam. In office UA normal today. We discussed multiple options for this problem. I encouraged her to see if her local hospital has pelvic PT. If it does not have services are available in [place]. She would also like to start a centrally acting pain medication, and I sent in a script for Cymbalta. I spoke with Dr. Perez over the phone and discussed my assessment and plan. A copy of this note will be send to his office. Patient can follow up with her usual fondant machine operator and PCP in [facility]. If PT and/or Cymbalta do not help patient she should return to see Ms. Dyan Bethea in our office to discuss a pelvic nerve block. in this encounter Plan of Treatment Not on fileas of this encounter Results * POC URINE DIPSTICK AUTO READ (05/05/2017) Component Value Ref Range Urine Glucose POC normal Urine Bilirubin POC negative Urine Ketone POC negative Urine Specific [place] 1.005 POC Urine Blood POC negative Urine PH POC 8 Urine Protein POC negative Urine Urobilinogen POC normal Urine Nitrite POC negative Urine Leukocytes POC negative Color,UA Turbidity,UA Specimen Performing Laboratory Urine IN CLINIC in this encounter Visit Diagnoses Diagnosis Chronic pelvic pain in female - Primary Unspecified symptom associated with female genital organs Cysts of both ovaries Other and unspecified ovarian cyst Pelvic floor dysfunction Pelvic muscle wasting Family history of breast cancer Family history of malignant neoplasm of breast in this encounter
--- OUTSIDE RECORDS SUMMARY | 2017-05-13 11:39 | XMS REPORT | Clinical Summary ---
Author Author [facility] Organization [facility] Address Unknown Phone Unavailable Care Team Providers Care Heel Finisher Name Role Phone PCP Unavailable Source Comments Some departments are not documenting in the electronic medical record. If you do not see the information that you expected, contact Release of Information in the Health Information Management department at [phone] for further assistance in locating additional records.[facility] Allergies Active Allergy Reactions Severity Noted Date Comments Doxycycline RASH 08/24/2014 Tramadol NAUSEA ONLY Low 05/03/2017 Current Medications Prescription Sig. Disp. Refills Start End Date Status Date clindamycin(+) (CLEOCIN Apply topically to Active T) 1 % topical gel affected area daily. NO HOME MEDICATIONS Active duloxetine DR (CYMBALTA) Take 1 capsule by mouth 14 capsule 0 05/19/20 Active 30 mg capsule daily for 14 days. [address] (CYMBALTA) Take 1 capsule by mouth 90 capsule 3 Active 60 mg capsule daily. Start after 17 initial two week prescription. NAPROXEN PO Take 1 Tab by mouth as 05/03/20 Discontin Needed. 17 ued HYDROcodone/acetaminophen Take 1 Tab by mouth every 05/03/20 Discontin (NORCO; VICODIN) 5-325 mg 4 hours as needed. 17 ued tablet fluconazole (DIFLUCAN) Take one tab by mouth 2 Tab 0 02/22/20 Discontin 150 mg tablet now, then repeat dose in 15 17 ued 72 hrs. Active Problems Problem Noted Date Vaginal discharge 02/14/2015 Depressive disorder, not elsewhere classified 09/15/2014 Unspecified symptom associated with female genital organs 08/24/2014 LLQ pain 08/24/2014 Myalgia and myositis, unspecified 08/24/2014 Coping with chronic pain 08/24/2014 Ilioinguinal neuralgia of left side 08/24/2014 Chronic pain syndrome 08/24/2014 Obesity 08/24/2014 Encounters Date Type Specialty Care Team Description 05/05/2017 Office Visit Obstetrics & Gynecology Ousmane Bach MD Chronic pelvic pain in female (Primary Dx);Cysts of both ovaries;Pelvic floor dysfunction;Family history of breast cancer from Last 3 Months Family History Medical History Relation Name Comments Cancer Father term brain Cancer Maternal term brain Grandmother Anesthetic Complication Neg Hx Bleeding Disorders Neg Hx Cancer-Breast Neg Hx Cancer-Colon Neg Hx Cancer-Ovarian Neg Hx Cancer-Uterine Neg Hx Diabetes Neg Hx Heart Disease Neg Hx Relation Name Status Comments Father Maternal Grandmother [...] Mass Index 30.56 05/05/2017 9:42 AM CDT Plan of Treatment Health Maintenance Due Date Last Done Comments PHYSICAL (COMPREHENSIVE) 2000 EXAM HPV VACCINES (1 of 3 - 2004 Female 3 Dose Series) PERTUSSIS VACCINE 2004 TETANUS VACCINE 2010 CERVICAL CANCER SCREENING 2014 INFLUENZA VACCINE 02/24/2017 Results * POC URINE DIPSTICK AUTO READ (05/05/2017) Component Value Ref Range Urine Glucose POC normal Urine Bilirubin POC negative Urine Ketone POC negative Urine Specific [place] 1.005 POC Urine Blood POC negative Urine PH POC 8 Urine Protein POC negative Urine Urobilinogen POC normal Urine Nitrite POC negative Urine Leukocytes POC negative Color,UA Turbidity,UA Specimen Performing Laboratory Urine IN CLINIC from Last 3 Months
--- OUTSIDE RECORDS SUMMARY | 2017-05-13 11:39 | XMS REPORT | Continuity of Care Document ---
Author Author [employer] Organization [facility] Address Unknown Phone Unavailable Care Team Providers Care Translational Specialist Name Role Phone [employer] Unavailable Unavailable Problems Medications Allergies, Adverse Reactions, Alerts Immunizations Results Vital Signs Encounters Location Location Details Encounter Type Encounter Number Reason For Visit Attending Provider ADM Date DC Date Status Source [place] 05/05/2017 05/05/2017 Active [facility] Procedures Plan of Care Social History Assessment and Plan Family History Value Date Source Advance Directives Order Name Results Value Date Source
[2017-05-13 11:40] VITALS: BP 113/80
[2017-05-13 11:57] LABS: BASOPHILS % (AUTO) 0 % (0-10); EOSINOPHILS # (AUTO) 0.2 10^3/uL (0.0-0.3); EOSINOPHILS % (AUTO) 2 % (0-10); LYMPHOCYTES # (AUTO) 2.9 X 10^3 (1.0-4.0); LYMPHOCYTES % (AUTO) 33 % (12-44); MEAN CORPUSCULAR HEMOGLOBIN 31 PG (25-34); MEAN CORPUSCULAR HGB CONC 34 G/DL (32-36); MEAN CORPUSCULAR VOLUME 90 FL (80-99); MEAN PLATELET VOLUME 10.2 FL (7.4-10.4); MONOCYTES # (AUTO) 0.4 X 10^3 (0.0-1.0); MONOCYTES % (AUTO) 5 % (0-12); NEUTROPHILS # (AUTO) 5.3 X 10^3 (1.8-7.8); NEUTROPHILS % (AUTO) 59 % (42-75); PLATELET COUNT 239 10^3/uL (130-400); RED BLOOD COUNT 4.69 10^6/uL (4.35-5.85); RED CELL DISTRIBUTION WIDTH 11.9 % (10.0-14.5); WHITE BLOOD COUNT 8.9 10^3/uL (4.3-11.0)
[2017-05-13] MEDS ORDERED: LACTATED RINGERS 1,000 ML IV PRN (11:59)
[2017-05-13] MEDS ORDERED: ceFAZolin 1 GM/NS 50 ML IVPB IV ONE ×2 (12:00)
[2017-05-13] MEDS ORDERED: proPOfol 200 MG/20 ML (DIPRIVAN) VIAL IV ONE (12:12)
[2017-05-13] MEDS ORDERED: ROCURONIUM 50 MG/5 ML (ZEMURON) VIAL IV ONE (12:12)
[2017-05-13] MEDS ORDERED: LIDOCAINE PF 2% 5 ML (XYLOCAINE) VIAL ONE (12:12)
[2017-05-13] MEDS ORDERED: LIDOCAINE JELLY 2% (XYLOCAINE) 5 ML TUBE ONE (12:12)
[2017-05-13] MEDS ORDERED: ONDANSETRON 4 MG/2 ML (SDV) Z0FRAN ONE ×3 (12:12→15:26)
[2017-05-13] MEDS ORDERED: MIDAZOLAM 2 MG/2 ML (VERSED) VIAL ONE (12:12)
[2017-05-13] MEDS ORDERED: fentaNYL INJECTION 100 MCG/2 ML AMP ONE ×2 (12:13→13:17)
[2017-05-13] MEDS ORDERED: BUP/EPI 0.5% 1:200,000 (MARCAINE) 10ML VIAL IJ ONE (12:16)
[2017-05-13] MEDS ORDERED: OXYC-202 PO (13:10)
--- NOTE | 2017-05-13 13:12 | Progress Note-Pre Operative ---
Pre-Operative Progress Note H&P Reviewed The H&P was reviewed, patient examined and no changes noted. Date Seen by Provider: May 13, 2017 Time Seen by Provider: 13:12 Date H&P Reviewed: May 13, 2017 Time H&P Reviewed: 13:12 Pre-Operative Diagnosis: chronic pelvic pain with complex left adnexal mass DEEPTI MELENDEZ MD May 13, 2017 1:12 pm
--- NOTE | 2017-05-13 13:12 | Discharge Instructions ---
Discharge Instructions Discharge Medications New, Converted or Re-Newed RX: RX on Chart Patient Instructions Patient Instructions: aas directed Return to The Hospital For: as directed Activity & Diet Discharge Diet: No Restrictions Activity as Tolerated: No Orders-Post D/C & Referrals Follow Up Appt: Call to make follow up appt. for patient in 1 weeks. Activity: Rest for 24 hours, than as tolerated. Wound Care: May remove Band-Aid tomorrow. Replace as desired. Keep incisions clean and dry. Wash daily with soap and water. Diet: As tolerated-Clear Liquids only if nauseated. Tomorrow, may shower or tub bathe as desired. No driving for 24 hours, no alcoholic beverages for 24 hours, and nothing per vagina (no tampons, douching, or intercoarse) for 2 weeks. Patient to return to the clinic as soon as possible for: Temperature greater than 101F, Severe Pain, Foul discharge from incision or vagina, Excessive Bleeding (more than a period). DEEPTI MELENDEZ MD May 13, 2017 1:12 pm
--- NOTE | 2017-05-13 13:13 | Progress Note-Post Operative ---
Post-Operative Progess Note Surgeon (s)/Director Ambulatory (s) Surgeon DEEPTI MELENDEZ MD Director Ambulatory: Donna Catalan Pre-Operative Diagnosis chronic pelvic pain with complex left adnexal mass Post-Operative Diagnosis same with right ovarian mass extensive pelvic adhesions overt appendicitis and with pathology pending Procedure & Operative Findings Date of Procedure 05/13/17 Procedure Performed/Findings laparoscopic LSO, right ovarian mass resection, extensive adhesiolysis, instruction of endometriosis, hydrotubation , laparoscopic appendectomy Anesthesia Type GETA Estimated Blood Loss Estimated blood loss (mL): minimal Specimens/Packing Specimens Removed left tube and ovary, right ovarian mass, appendix Packing: none DEEPTI MELENDEZ MD May 13, 2017 13:13
[2017-05-13] MEDS ORDERED: MEPERIDINE (DEMEROL) INJ 100 MG/ML IM ONE (13:15)
[2017-05-13] MEDS ORDERED: ONDANSETRON 4 MG/2 ML (SDV) Z0FRAN IVP PRN (13:15)
[2017-05-13] MEDS ORDERED: ESTROGENS CONJ IV 25 MG/5 ML (PREMARIN) VIAL IVP ONE (13:15)
[2017-05-13] MEDS ORDERED: PROMETHAZINE INJ 25 MG/ML (PHENERGAN) AMP IM ONE (13:15)
[2017-05-13] MEDS ORDERED: oxyCODONE/APAP 10/325MG (PERCOCET 10) TABLET PO PRN (13:15)
[2017-05-13] MEDS ORDERED: KETOROLAC 30 MG/ML VIAL IVP ONE (13:15)
[2017-05-13] MEDS ORDERED: KETOROLAC 30 MG/ML VIAL ONE (14:11)
[2017-05-13] MEDS ORDERED: morphine INJ 10 MG/ML 1ML (SYR OR VIAL) ONE (14:11)
[2017-05-13] MEDS ORDERED: WATER (STERILE) FOR INJECTION 10 ML ONE (14:11)
[2017-05-13] MEDS ORDERED: ESTROGENS CONJ IV 25 MG/5 ML (PREMARIN) VIAL ONE (14:12)
[2017-05-13] MEDS ORDERED: MEPERIDINE (DEMEROL) INJ 50 MG/ML IVP PRN (14:15)
[2017-05-13] MEDS ORDERED: SEVOFLURANE (ULTANE) 15 ML INHAL SOLN ONE (14:19)
[2017-05-13] MEDS ORDERED: GLYCOPYRROLATE 0.2 MG/ML (ROBINUL) 2 ML VIAL ONE (14:23)
[2017-05-13] MEDS ORDERED: NEOSTIGMINE (BLOXIVERZ ) 1 MG/1ML 10 ML VIAL ONE (14:23)
[2017-05-13] MEDS: morphine INJ 10 MG/ML 1ML (SYR OR VIAL) IVP PRN ×2 (14:54→15:00)
[2017-05-13] MEDS ORDERED: MEPERIDINE (DEMEROL) INJ 50 MG/ML ONE (14:57)
[2017-05-13] MEDS: ONDANSETRON 4 MG/2 ML (SDV) Z0FRAN IVP PRN ×2 (15:25→15:35)
[2017-05-13 15:40] VITALS: BP 123/83
[2017-05-13 16:30] VITALS: BP 122/81
[2017-05-13 17:30] VITALS: BP 116/75
[2017-05-13 19:25] VITALS: BP 113/70
[2017-05-13 20:30] VITALS: BP 110/68
[2017-05-13] MEDS ORDERED: ONDANSETRON 4 MG/2 ML (SDV) Z0FRAN IVP ONE (21:15)
[2017-05-13] MEDS ORDERED: METOCLOPRAMIDE INJ 10 MG/2 ML (REGLAN) ONE (21:57)
[2017-05-13] MEDS: D5 LR IV SOLUTION 1,000 ML IV SCH (22:00)
[2017-05-13] MEDS ORDERED: METOCLOPRAMIDE INJ 10 MG/2 ML (REGLAN) IVP ONE (22:15)
[2017-05-14 00:15] VITALS: BP 111/70
[2017-05-14 03:33] VITALS: BP 101/63
[2017-05-14] MEDS: D5 LR IV SOLUTION 1,000 ML IV SCH (03:33)
[2017-05-14] MEDS ORDERED: INFLUENZA TRIvalent 2017-2018 0.5 ML/45 MCG SYR IM ONE (07:00)
[2017-05-14] MEDS ORDERED: ONDANSETRON 8 MG (ZOFRAN) ORAL DISSOLVE TAB ONE (07:50)
[2017-05-14] MEDS ORDERED: ONDANSETRON 8 MG (ZOFRAN) ORAL DISSOLVE TAB PO PRN (08:00)
[2017-05-14] MEDS ORDERED: METOCLOPRAMIDE 10 MG (REGLAN) TAB PO PRN (08:00)
--- NOTE | 2017-05-14 08:01 | Progress Note-Standard ---
Standard Progress Note Progress Notes/Assess & Plan Date Seen by Provider: May 14, 2017 Time Seen by Provider: 08:00 Progress/Assessment & Plan patient without complaint. She reports that her preoperative pain is completely resolved. She does have a postoperative discomfort incisions that pain is well-controlled medication. She has had persistent nausea. She is ambulating and voiding well. Vital Signs Date Time Temp Pulse Resp B/P (MAP) Pulse Ox O2 Delivery O2 Flow Rate FiO2 05/14/17 03:33 97.9 104 18 101/63 97 Room Air 05/14/17 00:15 97.8 105 18 111/70 97 Room Air 05/13/17 20:30 97.5 106 18 110/68 98 Room Air 05/13/17 19:25 97.6 112 18 113/70 99 Room Air 05/13/17 17:30 98.5 106 16 116/75 96 Room Air 05/13/17 16:30 97.6 114 16 122/81 96 Room Air 05/13/17 15:40 97.4 103 16 123/83 97 Room Air 05/13/17 11:40 98.9 104 18 113/80 99 Room Air Vital signs are stable. Patient afebrile. The abdomen is benign. Extremities show no clubbing cyanosis. There is no Homans sign. Assessment and plan postoperative day number 1 doing well. Plan is for discharge home with follow-up in clinic. Final Diagnosis chronic pelvic pain DEEPTI MELENDEZ MD May 14, 2017 8:01 am
[2017-05-14 08:15] VITALS: BP 130/81
[2017-05-14 08:30] VITALS: BP 130/81
[2017-05-14 11:10] VITALS: BP 130/81
--- NOTE | 2017-05-14 13:37 | OPERATIVE REPORT ---
DATE OF SERVICE: 05/13/2017 PREOPERATIVE DIAGNOSIS: Chronic pelvic pain with complex left adnexal mass. POSTOPERATIVE DIAGNOSES: Chronic pelvic pain with complex left adnexal mass, appendicitis with right ovary solid mass with extensive pelvic adhesions and with pelvic endometriosis implants. OPERATIVE PROCEDURE: Laparoscopic excision of a right ovarian mass, extensive pelvic adhesiolysis and destruction of endometriosis implants, left salpingo-oophorectomy and laparoscopic appendectomy and hydrotubation. OPERATIVE DESCRIPTION: With the patient in the supine position under satisfactory general anesthesia, she was repositioned in dorsal lithotomy position in the [facility] and prepped and draped in the usual fashion for abdominal and vaginal surgery. The urinary bladder was emptied with a straight catheter. A weighted speculum was placed in the posterior fornix of the vagina, cervix exposed and grasped anteriorly with single-tooth tenaculum. The uterus was sounded to 9 cm with the uterine sound. The cervix was then serially dilated with Colton dilators to accommodate a uterine manipulator, which was placed and the bulb filled with 4 mL of air. The tenaculum and speculum were removed and the patient brought in low dorsal lithotomy position. A 5 mm incision was made in the patient's left upper quadrant. A Veress needle was placed through that incision into the abdominal cavity and correct placement confirmed with a water drop test. The abdomen was insufflated with 2.4 liters of carbon dioxide and then the Veress needle was removed and a 5 mm Optiview laparoscopic port placed. The patient was placed in Trendelenburg and ports of 12 mm and 5 mm were placed through the umbilical and suprapubic incisions respectively. All the incision sites had been infiltrated with 0.5% Marcaine with epinephrine prior to incision. The patient was placed in Trendelenburg. The bowel was filled partially above the pelvis as there was bowel adherent to the left pelvic brim and obscuring access to the left fallopian tube and ovary. There were extensive adhesions in the cul-de-sac and extensive adhesions of both ovaries to the ovarian fossae. The appendix was identified, it was adherent to the left pelvic brim markedly injected and tortuous and indurated, consistent with some degree of appendicitis. The attention was turned back to the pelvis, the adhesions of the left pelvic brim, sigmoid and rectosigmoid were very carefully freed, allowing access to the left tube and ovary. The left tube and ovary were again densely adherent into the left ovarian fossa. Attention was turned to the right ovary. It was dissected free from its adhesions, eventually exposing the ovarian fossa. There were several implants consistent with endometriosis that were destroyed in the process of the adhesiolysis. Once the ovary could be freed from the ovarian fossa and rotated, there was a 1 to 1.5 cm solid nodule adherent to the anti-mesenteric border of the ovary. This was carefully dissected free and removed through the umbilical port and sent to pathology labeled as right ovarian solid mass. The ovary was completely freed on the right and slight oozing was touched with electrocautery to achieve hemostasis. Dissection was then attempted on the left ovary. The left ovary was so adherent into the ovarian fossa that access was so restricted that the ovary essentially could not be freed without beginning the oophorectomy. The IP ligament was isolated by dissecting the sigmoid down off and those adhesions and then an Endo DAWSON was placed across the IP ligament and partially onto the mesovarium and fired. This allowed access to the ovarian fossa where the ovary could be freed further. There were dense adhesions in this area. The ureter was right behind these adhesions. The ureter was identified and seen to peristalse on several occasions ensuring that the integrity of the ureter had been maintained. With the ovary partially freed, it could be elevated and the additional adhesions in the ovarian fossa were then very carefully dissected free both with sharp and blunt dissection as well with electrocautery. Once the ovary was free to where it was primarily attached by the uteroovarian pedicle, a second Endo-DAWSON was placed across that and fired severing the ovary completely from its attachments. The ovary was eventually put in an Endobag and brought out through the umbilical incision. It was sent to pathology labeled as left tube and ovary. The ovarian fossa was then examined for hemostasis which was complete. The ureter was again identified and seen to peristalse on several occasions. The cul-de-sac was examined and after the extensive adhesiolysis that had been conducted free in the bowel from the ovarian fossa, it was a relatively clean and free now. The pelvis was irrigated and examined for hemostasis which was complete. Hydrotubation was then performed by injecting a sterile saline through the injection port of the uterine manipulator. Free spill of clear fluid was confirmed. The attention was now turned to the appendix. The appendix was grasped with some difficulty and elevated. There were extensive adhesions of the small bowel to the left pelvic brim and over the appendix. These adhesions were taken down with very careful and meticulous dissection, restoring the small bowel to its normal position on its own mesentery. The appendix was then grasped and elevated and the mesoappendix was divided starting distally and continuing to the base of the appendix where once the appendix was completely freed of the mesoappendix, an Endo-DAWSON was placed across the base of the appendix and fired. The appendix was severed from its attachments. In that process, the appendix was placed in an Endobag and brought out through the umbilical port as well. The stump of the appendix was copiously irrigated and treated with several drops of Betadine solution. The attention was turned back to the pelvis where the pelvis was irrigated, examined for hemostasis and further pathology finding. With no abnormal pathology and hemostasis complete, the procedure was terminated. The ovary was actually extracted last in this process. The ovary was removed through the umbilical incision. The scope was used to examine the abdominal wall port sites and the pelvis. With everything copacetic, the supraumbilical port was removed under direct vision. The abdomen was evacuated of the insufflating gas and then the left upper quadrant port was removed, no bleeding was noted at any of the port sites. The skin incisions were closed with interrupted sutures of 3-0 nylon, the fascia at the umbilical incision was closed with [id number] suture of 2-0 Vicryl. The uterine manipulator bulb was drained. The instrument was removed from the uterus and from the vagina. Speculum was replaced in the vagina and the cervix examined. It was completely hemostatic. Sponge and needle counts were correct. Hemostasis assured and estimated blood loss minimal. The patient was uneventfully awakened from her general anesthesia and transferred to the recovery room in stable condition with plans for discharge home PAR. Job ID: [id number] DocumentID: [id number] Dictated Date: 05/13/2017 14:38:33 Glass Finisher Date: 05/14/2017 03:06:09 Dictated By: DEEPTI MELENDEZ MD
== END 2017-05-14 11:10 | disposition home or self-care (01) ==
LOC: SDC 11:35 → WS 19:10 → SDC 05-14 11:10
PROVIDERS: ATTEND Obstetrics & Gynecology
DX: D27.0 Benign neoplasm of right ovary (principal); N83.8 Other noninflammatory disorders of ovary, fallopian tube and broad ligament; D27.1 Benign neoplasm of left ovary; Z23 Encounter for immunization
CPT/HCPCS: 36415; 84703; 85025; 87081

== ENCOUNTER 2017-10-06 22:06 | Emergency (ER) | payer MEDICAID ==
[~2017-10-06] VITALS: Ht 160 cm; Wt 77.1 kg
[~2017-10-06 22:06] MED LIST changes: +NAPR-915 PO; -NAPR500T3 PO; +OXYC-202 PO
--- OUTSIDE RECORDS SUMMARY | 2017-10-06 22:11 | XMS REPORT | Continuity of Care Document ---
Author Author [employer] Organization [facility] Address Unknown Phone Unavailable Care Team Providers Care Membership Correspondent Name Role Phone [employer] Unavailable Unavailable Problems Medications Allergies, Adverse Reactions, Alerts Immunizations Results Vital Signs Encounters Location Location Details Encounter Type Encounter Number Reason For Visit Attending Provider ADM Date DC Date Status Source O L[place] 05/05/2017 05/05/2017 Active [facility] Procedures Plan of Care Social History Assessment and Plan Family History Advance Directives Functional Status
--- OUTSIDE RECORDS SUMMARY | 2017-10-06 22:11 | XMS REPORT | Clinical Summary ---
Author Author [facility] Organization [facility] Address Unknown Phone Unavailable Care Team Providers Care Personnel Records Clerk Name Role Phone Sissy Chavez MD Unavailable Unavailable Sissy Hoyt PSYD Unavailable Giselle Palacio MD Unavailable No Pcp, Na PCP Unavailable Source Comments Some departments are not documenting in the electronic medical record. If you do not see the information that you expected, contact Release of Information in the Health Information Management department at [phone] for further assistance in locating additional records.[facility] Allergies Active Allergy Reactions Severity Noted [...] Start after 17 initial two week prescription. Active Problems Problem Noted Date Vaginal discharge [...] Female 3 Dose Series) PERTUSSIS VACCINE 2004 HIV SCREENING 2008 TETANUS VACCINE 2010 CERVICAL CANCER SCREENING 2014 INFLUENZA VACCINE 04/26/2018 Results Not on filefrom Last 3 Months
--- OUTSIDE RECORDS SUMMARY | 2017-10-06 22:14 | XMS REPORT | Continuity of Care Document ---
Author Author [facility] Address Unknown Phone Unavailable Allergies Active Description Code Type Severity Reaction Onset Reported/Identified Relationship to Patient Clinical Status Yes doxycycline Drug Allergy 11/11/2011 Yes doxycycline [id number] Drug Allergy Unknown N/A 05/11/2017 Medications There is no data. Problems Date Dx Coded Attending Type Code [...] DERANGEMENT KNEE NOS 03/02/2012 Ot 719.46 JOINT PAIN-L /LEG 03/17/2012 Ot 850.0 CONCUSSION W/ O COMA 03/17/2012 Ot E000.8 OTHER EXTERNAL CAUSE [...] INOCULATI 06/09/2013 YVETTE SALOMON MD, Ot V06.1 [id number], COMBINED [ 06/25/2013 YVETTE SALOMON MD Ot [...] FEM GENITAL SYMPTOMS NEC 08/17/2013 YVETTE SALOMON MD, Ot 646.83 PREG COMPL NEC-ANTEPART 08/24/2013 YVETTE [...] GENITAL SYMPTOMS NOS 12/01/2014 YVETTE SALOMON MD J Ot 646.90 12/01/2014 UMM VILLEGAS, YVETTE Rao Ot 649.63 12/01/2014 FENECH DO, FLAQUITO S Ot 789.04 12/01/2014 FENECH DO, FLAQUITO S Ot V72.63 12/01/2014 FENECH DO, FLAQUITO S Ot V74.8 12/01/2014 AMNA DASH, PARISA Roney Ot 625.9 FEM GENITAL SYMPTOMS NOS 12/01/2014 [...] S Ot V74.8 04/04/2015 KENDELL WRAY DO Ot 780.4 DIZZINESS AND GIDDINESS 04/04/2015 UMM VILLEGAS, YVETTE Rao Ot 646.90 04/04/2015 YVETTE SALOMON MD Ot 649.63 04/04/2015 FENECH DO, FLAQUITO S Ot 789.04 04/04/2015 FENECH DO, FLAQUITO S Ot V72.63 04/04/2015 FENECH DO, FLAQUITO S Ot V74.8 05/09/2015 UMM VILLEGAS, YVETTE Rao Ot 646.90 05/09/2015 UMM VILLEGAS, YVETTE Rao Ot 649.63 05/09/2015 FENECH DO, FLAQUITO S Ot 789.04 05/09/2015 FENECH DO, FLAQUITO S Ot V72.63 05/09/2015 FENECH DO, FLAQUITO S Ot V74.8 05/09/2015 VARUN WRAY DOA Kaela Ot 780.4 05/21/2015 AMAN VILLEGAS, CORY Roa Ot F41.8 05/21/2015 CORY NEWTON MD Ot R00.2 05/21/2015 AMAN VILLEGAS, CORY Rao [...] Ot R10.2 PELVIC AND PERINEAL PAIN 04/24/2016 YVETTE SALOMON MD Ot 646.90 PREG COMPL NOS-UNSPEC 04/24/2016 YVETTE SALOMON MD Ot 649.63 UTERINE SIZE DATE DISCREPANCY, ANTEPARTU 04/24/2016 FLAQUITO JONES DO S Ot 789.04 ABDOMINAL PAIN, LEFT LOWER QUADRANT 04/24/2016 FLAQUITO JONES DO Ot V72.63 PRE-PROCEDURAL LABORATORY EXAMINATION 04/24/2016 FLAQUITO JONES DO Ot V74.8 SCREEN-BACTERIAL DIS NEC 04/24/2016 CORY [...] Ot 646.90 PREG COMPL NOS-UNSPEC 05/07/2016 YVETTE SALOMON MD, Ot 649.63 UTERINE SIZE DATE DISCREPANCY, ANTEPARTU 05/07/2016 ROBERT DASH, FLAQUITO S Ot 789.04 ABDOMINAL PAIN, LEFT LOWER QUADRANT 05/07/2016 FLAQUITO JONES DO S Ot V72.63 PRE-PROCEDURAL LABORATORY EXAMINATION 05/07/2016 ROBERT DASH, FLAQUITO S Ot V74.8 SCREEN-BACTERIAL DIS NEC 05/07/2016 [...] JULIANA ABEBE APRN Ot O20.0 THREATENED 05/23/2016 JULIANA ABEBE SUPERVISOR SCRAP PREPARATION Ot Z3A.08 8 WEEKS GESTATION OF 05/26/2016 KAMALA VARUN DASHA K Ot O03.9 COMPLETE OR UNSP SPONTANEOUS [place] 05/26/2016 KAMALA VARUN DASHA K Ot Z3A.08 8 WEEKS GESTATION OF 05/26/2016 JULIANA ABEBE SUPERVISOR SCRAP PREPARATION Ot O03.9 COMPLETE OR UNSP SPONTANEOUS [place] 05/26/2016 JULIANA ABEBE SUPERVISOR SCRAP PREPARATION Ot O20.0 THREATENED 05/26/2016 JULIANA ABEBE SUPERVISOR SCRAP PREPARATION Ot Z3A.08 8 WEEKS GESTATION OF 05/27/2016 KAMALA DO KENDELL K Ot O03.9 COMPLETE OR UNSP SPONTANEOUS [place] 05/27/2016 KAMALA DO KENDELL K Ot Z3A.08 8 WEEKS GESTATION OF 05/31/2016 KAMALA , KENDELL K Ot O03.9 COMPLETE OR UNSP SPONTANEOUS [place] 05/31/2016 KAMALA DO KENDELL K Ot Z3A.08 8 WEEKS GESTATION OF 06/11/2016 JULIANA ABEBE SUPERVISOR SCRAP PREPARATION Ot O03.9 COMPLETE OR UNSP SPONTANEOUS [place] 06/11/2016 JULIANA ABEBE SUPERVISOR SCRAP PREPARATION Ot O20.0 THREATENED 06/11/2016 JULIANA ABEBE SUPERVISOR SCRAP PREPARATION Ot Z3A.08 8 WEEKS GESTATION OF 08/18/2016 [...] Rao Ot 646.90 PREG COMPL NOS-UNSPEC 10/31/2016 YVETTE SALOMON MD Ot 649.63 UTERINE SIZE DATE DISCREPANCY, ANTEPARTU 10/31/2016 ROBERT DASH FLAQUITO Alves Ot 789.04 ABDOMINAL PAIN, LEFT LOWER QUADRANT 10/31/2016 ROBERT DASH FLAQUITO Alves Ot V72.63 PRE-PROCEDURAL LABORATORY EXAMINATION 10/31/2016 FLAQUITO [...] Ot O46.91 ANTEPARTUM HEMORRHAGE, UNSPECIFIED, FIRS 10/31/2016 YVETTE SALOMON MD, Ot Z3A.01 LESS THAN 8 WEEKS GESTATION OF 10/31/2016 KENDELL WRAY DO Ot G89.29 OTHER CHRONIC PAIN 10/31/2016 KENDELL WRAY DO Ot N39.0 URINARY TRACT INFECTION, SITE NOT SPECIF 10/31/2016 KENDELL WRAY DO Ot R10.2 PELVIC AND PERINEAL PAIN 10/31/2016 KENDELL WRAY DO Ot Z97.5 PRESENCE OF (INTRAUTERINE) CONTRACEPTIVE 11/03/2016 KENDELL WRAY DO Ot G89.29 OTHER CHRONIC PAIN 11/03/2016 KENDELL WRAY DO Ot N39.0 URINARY TRACT INFECTION, SITE NOT SPECIF 11/03/2016 KENDELL WRAY DO Kaela Ot R10.2 PELVIC AND PERINEAL PAIN 11/03/2016 KENDELL WRAY DO Ot Z97.5 PRESENCE OF (INTRAUTERINE) CONTRACEPTIVE 12/03/2016 ROBERT DO FLAQUITO S Ot R10.2 PELVIC AND PERINEAL PAIN 12/03/2016 ROBERT DASH FLAQUITO S Ot R10.32 LEFT LOWER QUADRANT PAIN 12/03/2016 ROBERT DASH FLAQUITO S Ot Z01.818 ENCOUNTER FOR OTHER PREPROCEDURAL EXAMIN 12/04/2016 ROBERT DO FLAQUITO S Ot N73.6 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 PERITONEAL ADHESIONS (POST 12/04/2016 KASHECH DO FLAQUITO S Ot N83.02 FOLLICULAR CYST OF LEFT OVARY 12/08/2016 KASHQUINTON DOFLAQUITO S Ot N73.6 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 PERITONEAL ADHESIONS (POST 12/08/2016 ROBERT DO FLAQUITO S Ot N83.02 FOLLICULAR CYST OF LEFT OVARY 12/10/2016 ROBERT DOFLAQUITO S Ot N73.6 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 PERITONEAL ADHESIONS (POST 12/10/2016 ROBERT DO FLAQUITO S Ot N83.02 FOLLICULAR CYST OF LEFT OVARY 12/19/2016 ROBERT DOFLAQUITO S Ot N73.6 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 PERITONEAL ADHESIONS (POST 12/19/2016 ROBERT DO FLAQUITO S Ot N83.02 FOLLICULAR CYST OF LEFT OVARY 02/09/2017 UMM VILLEGAS, YVETTE Rao Ot 646.90 PREG COMPL NOS-UNSPEC 02/09/2017 UMM VILLEGAS, YVETTE Rao Ot 649.63 UTERINE SIZE DATE DISCREPANCY, ANTEPARTU 02/09/2017 ROBERT FLAQUITO DASH S Ot 789.04 ABDOMINAL PAIN, LEFT LOWER QUADRANT 02/09/2017 ROBERT FLAQUITO DASH S Ot V72.63 PRE-PROCEDURAL LABORATORY EXAMINATION 02/09/2017 ROBERT DO FLAQUITO S Ot V74.8 SCREEN-BACTERIAL DIS NEC 02/09/2017 CORY NEWTON MD Ot F41.8 OTHER SPECIFIED ANXIETY DISORDERS 02/09/2017 CORY NEWTON MD Ot R00.2 PALPITATIONS 02/09/2017 CORY NEWTON MD Ot R07.89 OTHER CHEST PAIN 02/09/2017 CORY NEWTON MD Ot F41.8 OTHER SPECIFIED ANXIETY DISORDERS 02/09/2017 CORY NEWTON MD Ot R00.2 PALPITATIONS 02/09/2017 CORY NEWTON MD Ot R07.89 OTHER CHEST PAIN 02/09/2017 JOSELINE WESLEY Ot F41.8 OTHER SPECIFIED ANXIETY DISORDERS 02/09/2017 JOSELINE WESLEY Ot I47.1 SUPRAVENTRICULAR TACHYCARDIA 02/09/2017 JOSELINE WESLEY Ot R00.2 PALPITATIONS 02/09/2017 YVETTE SALOMON MD Ot R10.2 PELVIC AND PERINEAL PAIN 02/09/2017 YVETTE SALOMON MD Ot O46.91 ANTEPARTUM HEMORRHAGE, UNSPECIFIED, FIRS 02/09/2017 YVETTE SALOMON MD Ot Z3A.01 LESS THAN 8 WEEKS GESTATION OF 02/10/2017 KEEGAN RIVAS MD Ot F41.9 ANXIETY DISORDER, UNSPECIFIED 02/10/2017 KEEGAN RIVAS MD Ot N39.0 URINARY TRACT INFECTION, SITE NOT SPECIF 02/10/2017 KEEGAN RIVAS MD Ot R10.2 PELVIC AND PERINEAL PAIN 02/10/2017 KEEGAN RIVAS MD Ot Z32.02 ENCOUNTER FOR TEST, RESULT NEG 02/10/2017 KEEGAN RIVAS MD Ot Z80.8 FAMILY HISTORY OF MALIGNANT NEOPLASM OF 02/10/2017 KEEGAN RIVAS MD Ot Z82.49 FAMILY HX OF ISCHEM HEART DIS AND OTH DI 02/11/2017 KEEGAN RIVAS MD Ot F41.9 ANXIETY DISORDER, UNSPECIFIED 02/11/2017 KEEGAN RIVAS MD Ot N39.0 URINARY TRACT INFECTION, SITE NOT SPECIF 02/11/2017 KEEGAN RIVAS MD Ot R10.2 PELVIC AND PERINEAL PAIN 02/11/2017 KEEGAN RIVAS MD Ot Z32.02 ENCOUNTER FOR TEST, RESULT NEG 02/11/2017 KEEGAN RIVAS MD Ot Z80.8 FAMILY HISTORY OF MALIGNANT NEOPLASM OF 02/11/2017 KEEGAN RIVAS MD Ot Z82.49 FAMILY HX OF ISCHEM HEART DIS AND OTH DI 03/10/2017 YVETTE SALOMON MD Ot 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.9 NONINFLAMMATORY DISORD OF OVARY, FALLOP 03/10/2017 YVETTE SALOMON MD Ot Z97.5 PRESENCE OF (INTRAUTERINE) CONTRACEPTIVE 04/09/2017 YVETTE SALOMON MD Ot R10.2 PELVIC AND PERINEAL PAIN 04/22/2017 YVTETE SALOMON MD Ot R10.2 PELVIC AND PERINEAL PAIN 04/22/2017 YVETTE SALOMON MD Ot N83.9 NONINFLAMMATORY DISORD OF OVARY, FALLOP 04/23/2017 YVETTE SALOMON MD Ot 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.9 NONINFLAMMATORY DISORD OF OVARY, FALLOP 04/28/2017 YVETTE SALOMON MD Ot 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.9 NONINFLAMMATORY DISORD OF OVARY, FALLOP 05/07/2017 YVETTE SALOMON MD Ot 646.90 PREG COMPL NOS-UNSPEC 05/07/2017 YVETTE SALOMON MD Ot 649.63 UTERINE SIZE DATE DISCREPANCY, ANTEPARTU 05/07/2017 FLAQUITO JONES DO Ot 789.04 ABDOMINAL PAIN, LEFT LOWER QUADRANT 05/07/2017 FLAQUITO JONES DO Ot V72.63 PRE-PROCEDURAL LABORATORY EXAMINATION 05/07/2017 FLAQUITO JONES DO Ot V74.8 SCREEN-BACTERIAL DIS NEC 05/07/2017 CORY NEWTON MD Ot F41.8 OTHER SPECIFIED ANXIETY DISORDERS 05/07/2017 CORY NEWTON MD Ot R00.2 PALPITATIONS 05/07/2017 CORY NEWTON MD Ot R07.89 OTHER CHEST PAIN 05/07/2017 CORY NEWTON MD Ot F41.8 OTHER SPECIFIED ANXIETY DISORDERS 05/07/2017 CORY NEWTON MD Ot R00.2 PALPITATIONS 05/07/2017 CORY NEWTON MD Ot R07.89 OTHER CHEST PAIN 05/07/2017 JOSELINE WESLEY Ot F41.8 OTHER SPECIFIED ANXIETY DISORDERS 05/07/2017 JOSELINE WESLEY Ot I47.1 SUPRAVENTRICULAR TACHYCARDIA 05/07/2017 JOSELINE WESLEY Ot R00.2 PALPITATIONS 05/07/2017 YVETTE SALOMON MD Ot R10.2 PELVIC AND PERINEAL PAIN 05/07/2017 YVETTE SALOMON MD Ot O46.91 ANTEPARTUM HEMORRHAGE, UNSPECIFIED, FIRS 05/07/2017 YVETTE SALOMON MD Ot Z3A.01 LESS THAN 8 WEEKS GESTATION OF 05/07/2017 YVETTE SALOMON MD Ot 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.9 NONINFLAMMATORY DISORD OF OVARY, FALLOP 05/07/2017 YVETTE SALOMON MD Ot Z97.5 PRESENCE OF (INTRAUTERINE) CONTRACEPTIVE 05/07/2017 YVETTE SALOMON MD Ot R10.2 PELVIC AND PERINEAL PAIN 05/07/2017 YVETTE SALOMON MD Ot 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.9 NONINFLAMMATORY DISORD OF OVARY, FALLOP 05/11/2017 DEEPTI MELENDEZ MD, Ot D64.9 ANEMIA, UNSPECIFIED 05/11/2017 DEEPTI MELENDEZ MD, Ot 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.9 NONINFLAMMATORY DISORD OF OVARY, FALLOP 05/11/2017 DEEPTI MELENDEZ MD, Ot Z01.818 ENCOUNTER FOR OTHER PREPROCEDURAL EXAMIN 05/12/2017 DEEPTI MELENDEZ MD, Ot D64.9 ANEMIA, UNSPECIFIED 05/12/2017 DEEPTI MELENDEZ MD, Ot 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.9 NONINFLAMMATORY DISORD OF OVARY, FALLOP 05/12/2017 DEEPTI MELENDEZ MD, Ot Z01.818 ENCOUNTER FOR OTHER PREPROCEDURAL EXAMIN 05/13/2017 YVETTE SALOMON MD Ot 646.90 PREG COMPL NOS-UNSPEC 05/13/2017 YVETTE SALOMON MD Ot 649.63 UTERINE SIZE DATE DISCREPANCY, ANTEPARTU 05/13/2017 FLAQUITO JONES DO Ot 789.04 ABDOMINAL PAIN, LEFT LOWER QUADRANT 05/13/2017 FLAQUITO JONES DO Ot V72.63 PRE-PROCEDURAL LABORATORY EXAMINATION 05/13/2017 FLAQUITO JONES DO Ot V74.8 SCREEN-BACTERIAL DIS NEC 05/13/2017 CORY NEWTON MD Ot F41.8 OTHER SPECIFIED ANXIETY DISORDERS 05/13/2017 CORY NEWTON MD Ot R00.2 PALPITATIONS 05/13/2017 CORY NEWTON MD Ot R07.89 OTHER CHEST PAIN 05/13/2017 CORY NEWTON MD Ot F41.8 OTHER SPECIFIED ANXIETY DISORDERS 05/13/2017 CORY NEWTON MD Ot R00.2 PALPITATIONS 05/13/2017 CORY NEWTON MD Ot R07.89 OTHER CHEST PAIN 05/13/2017 JOSELINE WESLEY Ot F41.8 OTHER SPECIFIED ANXIETY DISORDERS 05/13/2017 JOSELINE WESLEY Ot I47.1 SUPRAVENTRICULAR TACHYCARDIA 05/13/2017 JOSELINE WESLEY Ot R00.2 PALPITATIONS 05/13/2017 YVETTE SALOMON MD Ot R10.2 PELVIC AND PERINEAL PAIN 05/13/2017 YVETTE SALOMON MD Ot O46.91 ANTEPARTUM HEMORRHAGE, UNSPECIFIED, FIRS 05/13/2017 YVETTE SALOMON MD, Ot Z3A.01 LESS THAN 8 WEEKS GESTATION OF 05/13/2017 YVETTE SALOMON MD, Ot 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.9 NONINFLAMMATORY DISORD OF OVARY, FALLOP 05/13/2017 YVETTE SALOMON MD, Ot Z97.5 PRESENCE OF (INTRAUTERINE) CONTRACEPTIVE 05/13/2017 YVETTE SALOMON MD, Ot R10.2 PELVIC AND PERINEAL PAIN 05/13/2017 YVETTE SALOMON MD, Ot 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.9 NONINFLAMMATORY DISORD OF OVARY, FALLOP 05/14/2017 DEEPTI MELENDEZ MD Ot D27.0 BENIGN NEOPLASM OF RIGHT OVARY 05/14/2017 DEEPTI MELENDEZ MD Ot D27.1 BENIGN NEOPLASM OF LEFT OVARY 05/14/2017 DEEPTI MELENDEZ MD Ot N83.8 OTH NONINFLAMMATORY DISORD OF OVARY, FAL 05/14/2017 DEEPTI MELENDEZ MD Ot Z23 ENCOUNTER FOR IMMUNIZATION 05/18/2017 DEEPTI MELENDEZ MD Ot D27.0 BENIGN NEOPLASM OF RIGHT OVARY 05/18/2017 DEEPTI MELENDEZ MD Ot D27.1 BENIGN NEOPLASM OF LEFT OVARY 05/18/2017 DEEPTI MELENDEZ MD Ot N83.8 OTH NONINFLAMMATORY DISORD OF OVARY, FAL 05/18/2017 DEEPTI MELENDEZ MD Ot Z23 ENCOUNTER FOR IMMUNIZATION 09/15/2017 YVETTE SALOMON MD Ot 646.90 PREG COMPL NOS-UNSPEC 09/15/2017 YVETTE SALOMON MD, Ot 649.63 UTERINE SIZE DATE DISCREPANCY, ANTEPARTU 09/15/2017 FLAQUITO JONES DO Ot 789.04 ABDOMINAL PAIN, LEFT LOWER QUADRANT 09/15/2017 FLAQUITO JONES DO Ot V72.63 PRE-PROCEDURAL LABORATORY EXAMINATION 09/15/2017 FLAQUITO JONES DO Ot V74.8 SCREEN-BACTERIAL DIS NEC 09/15/2017 CORY NEWTON MD Ot F41.8 OTHER SPECIFIED ANXIETY DISORDERS 09/15/2017 AMAN VILLEGAS, CORY Rao Ot R00.2 PALPITATIONS 09/15/2017 CORY NEWTON MD Ot R07.89 OTHER CHEST PAIN 09/15/2017 CORY NEWTON MD Ot F41.8 OTHER SPECIFIED ANXIETY DISORDERS 09/15/2017 CORY NEWTON MD Ot R00.2 PALPITATIONS 09/15/2017 CORY NEWTON MD Ot R07.89 OTHER CHEST PAIN 09/15/2017 JOSELINE WESLEY Ot F41.8 OTHER SPECIFIED ANXIETY DISORDERS 09/15/2017 JOSELINE WESLEY Ot I47.1 SUPRAVENTRICULAR TACHYCARDIA 09/15/2017 JOSELINE WESLEY Ot R00.2 PALPITATIONS 09/15/2017 YVETTE SALOOMN MD Ot R10.2 PELVIC AND PERINEAL PAIN 09/15/2017 YVETTE SALOMON MD Ot O46.91 ANTEPARTUM HEMORRHAGE, UNSPECIFIED, FIRS 09/15/2017 YVETTE SALOMON MD Ot Z3A.01 LESS THAN 8 WEEKS GESTATION OF 09/15/2017 YVETTE SALOMON MD, Ot N83.9 NONINFLAMMATORY DISORD OF OVARY, FALLOP 09/15/2017 YVETTE SALOMON MD Ot Z97.5 PRESENCE OF (INTRAUTERINE) CONTRACEPTIVE 09/15/2017 YVETTE SALOMON MD, Ot R10.2 PELVIC AND PERINEAL PAIN 09/15/2017 YVETTE SALOMON MD, Ot N83.9 NONINFLAMMATORY DISORD OF OVARY, FALLOP 09/28/2017 YVETTE SALOMON MD Ot 646.90 PREG COMPL NOS-UNSPEC 09/28/2017 YVETTE SALOMON MD, Ot 649.63 UTERINE SIZE DATE DISCREPANCY, ANTEPARTU 09/28/2017 FLAQUITO JONES DO Ot 789.04 ABDOMINAL PAIN, LEFT LOWER QUADRANT 09/28/2017 FLAQUITO JONES DO Ot V72.63 PRE-PROCEDURAL LABORATORY EXAMINATION 09/28/2017 FLAQUITO JONES DO Ot V74.8 SCREEN-BACTERIAL DIS NEC 09/28/2017 CORY NEWTON MD, Ot F41.8 OTHER SPECIFIED ANXIETY DISORDERS 09/28/2017 CORY NEWTON MD Ot R00.2 PALPITATIONS 09/28/2017 CORY NEWTON MD Ot R07.89 OTHER CHEST PAIN 09/28/2017 CORY NEWTON MD Ot F41.8 OTHER SPECIFIED ANXIETY DISORDERS 09/28/2017 CORY NEWTON MD Ot R00.2 PALPITATIONS 09/28/2017 CORY NEWTON MD Ot R07.89 OTHER CHEST PAIN 09/28/2017 JOSELINE WESLEY Ot F41.8 OTHER SPECIFIED ANXIETY DISORDERS 09/28/2017 JOSELINE WESLEY Ot I47.1 SUPRAVENTRICULAR TACHYCARDIA 09/28/2017 JOSELINE WESLEY Ot R00.2 PALPITATIONS 09/28/2017 YVETTE SALOMON MD, Ot R10.2 PELVIC AND PERINEAL PAIN 09/28/2017 YVETTE SALOMON MD, Ot O46.91 ANTEPARTUM HEMORRHAGE, UNSPECIFIED, FIRS 09/28/2017 YVETTE SALOMON MD, Ot Z3A.01 LESS THAN 8 WEEKS GESTATION OF 09/28/2017 YVETTE SALOMON MD, Ot 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.9 NONINFLAMMATORY DISORD OF OVARY, FALLOP 09/28/2017 YVETTE SALOMON MD, Ot Z97.5 PRESENCE OF (INTRAUTERINE) CONTRACEPTIVE 09/28/2017 YVETTE SALOMON MD, Ot R10.2 PELVIC AND PERINEAL PAIN 09/28/2017 YVETTE SALOMON MD, Ot N83.9 NONINFLAMMATORY DISORD OF OVARY, FALLOP Procedures Code Description Performed By Performed On Flaquito Hurley 07/09/2012 96.49 OTHER INSTILLATION 08/21/2013 72.71 VACUUM EXT DEL W EPISIOT 08/22/2013 Results Test Result Range Complete urinalysis with reflex to culture - 04/24/16 11:39 Urine color determination YELLOW NRG Urine clarity determination CLEAR NRG Urine pH measurement by test strip 8 5-9 Specific gravity of urine by test strip 1.010 1.016- 1.022 Urine protein assay by test strip, semi-quantitative [...] 11:48 Blood leukocytes automated count (number/volume) 5.9 10*3/uL 4.3-11.0 Blood erythrocytes automated count (number/volume) 4.53 10*6/uL 4.35-5.85 Venous blood hemoglobin measurement (mass/volume) 14.0 [...] Automated blood platelet mean volume measurement 10.3 [foz_us] 7.4-10.4 Automated blood neutrophils/100 leukocytes 60 % [...] Serum or plasma choriogonadotropin measurement (units/volume) 4359 m [iU]/mL <5 Complete blood count (CBC) with automated white blood cell (WBC) differential - 05/23/16 08:28 Blood leukocytes automated count (number/volume) 9.7 10*3/uL 4.3-11.0 Blood erythrocytes automated count (number/volume) 4.58 10*6/uL 4.35-5.85 Venous blood hemoglobin measurement (mass/volume) 14.1 [...] Automated blood platelet mean volume measurement 10.4 [foz_us] 7.4-10.4 Automated blood neutrophils/100 leukocytes 52 % [...] ABO+Rh group AP NRG Transfusion band number [id number] NR Complete blood count (CBC) with automated white blood cell (WBC) differential - 05/26/16 01:42 Blood leukocytes automated count (number/volume) 9.5 10*3/uL 4.3-11.0 Blood erythrocytes automated count (number/volume) 4.60 10*6/uL 4.35-5.85 Venous blood hemoglobin measurement (mass/volume) 14.0 [...] Automated blood platelet mean volume measurement 10.3 [foz_us] 7.4-10.4 Automated blood neutrophils/100 leukocytes 53 % [...] ABO+Rh group AP NRG Transfusion band number [id number] NRG Blood group antibody screen NEGATIVE NRG Serum or plasma choriogonadotropin measurement (units/volume) - 05/26/16 01:42 Serum or plasma choriogonadotropin measurement (units/volume) 7384 m [iU]/mL <5 Complete urinalysis with reflex to culture - 08/18/16 16:45 Urine color determination YELLOW NRG Urine clarity determination SLIGHTLY CLOUDY NRG Urine pH measurement by test strip 6 5-9 Specific gravity of urine by test strip 1.010 1.016- 1.022 Urine protein assay by test strip, semi-quantitative [...] identification in genital specimen by aerobe culture [id number] NRG Microscopic examination by DEMIAN preparation - 08/18/16 17:35 Microscopic examination by DEMIAN preparation TNP NRG Microscopic examination by wet preparation - 08/18/16 17:35 WET PREP RESULTS NR Neisseria gonorrhoeae DNA detection by probe and [...] Urine pH measurement by test strip 7 5-9 Specific gravity of urine by test strip 1.015 1.016- 1.022 Urine protein assay by test strip, semi-quantitative [...] culture - 10/31/16 19:50 Bacterial urine culture [id number] NRG COLONY COUNT 10,000/ML - 100,000/ML NRG URINE CULTURE RESULTS PLUS NRG FREE TEXT ENTRY 2 NOT ENTROCOCCUS NRG Complete blood count (CBC) with automated white blood cell (WBC) differential - 10/31/16 19:55 Blood leukocytes automated count (number/volume) 8.1 10*3/uL 4.3-11.0 Blood erythrocytes automated count (number/volume) 4.55 10*6/uL 4.35-5.85 Venous blood hemoglobin measurement (mass/volume) 13.8 [...] Automated blood platelet mean volume measurement 9.5 [foz_us] 7.4-10.4 Automated blood neutrophils/100 leukocytes 49 % [...] Serum or plasma sodium measurement (moles/volume) 142 mmol/L 135-145 Serum or plasma potassium measurement (moles/volume) 3.8 mmol/L 3.6-5.0 Serum or plasma chloride measurement (moles/volume) 105 mmol/L 98-107 Carbon dioxide 28 mmol/L 21-32 Serum or plasma anion gap determination (moles/volume) 9 mmol/L 5-14 Serum or plasma urea nitrogen measurement (mass/volume) 7 mg/dL 7-18 Serum or plasma creatinine measurement (mass/volume) 0.81 mg/dL 0.60-1.30 Serum or plasma urea nitrogen/creatinine mass [...] 07:56 Blood leukocytes automated count (number/volume) 8.3 10*3/uL 4.3-11.0 Blood erythrocytes automated count (number/volume) 4.72 10*6/uL 4.35-5.85 Venous blood hemoglobin measurement (mass/volume) 14.4 [...] Automated blood platelet mean volume measurement 10.5 [foz_us] 7.4-10.4 Automated blood neutrophils/100 leukocytes 48 % [...] ABO+Rh group AP NRG Transfusion band number [id number] NRG Blood group antibody screen NEGATIVE NRG Urine beta human chorionic gonadotropin (hCG) measurement - 02/09/17 23:18 Urine beta human chorionic gonadotropin (hCG) measurement NEGATIVE NEGATIVE Complete urinalysis with reflex to culture - 02/09/17 23:18 Urine color determination YELLOW NRG Urine clarity determination CLEAR NRG Urine pH measurement by test strip 6.5 5-9 Specific gravity of urine by test strip 1.010 1.016- 1.022 Urine protein assay by test strip, semi-quantitative [...] detection in urine sediment by light microscopy FEW NRG Squamous epithelial cells detection in urine sediment by light microscopy 5-10 NRG Crystals detection in urine sediment by light microscopy NONE NRG Casts detection in urine sediment by light microscopy NONE NRG Mucus detection in urine sediment by light microscopy NEGATIVE NRG Complete urinalysis with reflex to culture YES NRG Bacterial urine culture - 02/09/17 23:18 URINE CULTURE RESULTS <10,000/ML NRG Urine beta human chorionic gonadotropin (hCG) measurement - 05/13/17 11:45 Urine beta human chorionic gonadotropin (hCG) measurement NEGATIVE NEGATIVE Complete blood count (CBC) with automated white blood cell (WBC) differential - 05/13/17 11:50 Blood leukocytes automated count (number/volume) 8.9 10*3/uL 4.3-11.0 Blood erythrocytes automated count (number/volume) 4.69 10*6/uL 4.35-5.85 Venous blood hemoglobin measurement (mass/volume) 14.4 g/dL 11.5-16.0 Blood hematocrit (volume fraction) 42 % 35-52 Automated erythrocyte mean corpuscular volume 90 [foz_us] 80-99 Automated erythrocyte mean corpuscular hemoglobin (mass per erythrocyte) 31 pg 25-34 Automated erythrocyte mean corpuscular hemoglobin concentration measurement ( mass/volume) 34 g/dL 32-36 Automated erythrocyte distribution width ratio 11.9 % 10.0-14.5 Automated blood platelet count (count/volume) 239 10*3/uL 130-400 Automated blood platelet mean volume measurement 10.2 [foz_us] 7.4-10.4 Automated blood neutrophils/100 leukocytes 59 % 42-75 Automated blood lymphocytes/100 leukocytes 33 % 12-44 Blood monocytes/100 leukocytes 5 % 0-12 Automated blood eosinophils/100 leukocytes 2 % 0-10 Automated blood basophils/100 leukocytes 0 % 0-10 Blood neutrophils automated count (number/volume) 5.3 10*3 1.8-7.8 Blood lymphocytes automated count (number/volume) 2.9 10*3 1.0-4.0 Blood monocytes automated count (number/volume) 0.4 10*3 0.0-1.0 Automated eosinophil count 0.2 10*3/uL 0.0-0.3 Automated blood basophil count (count/volume) 0.0 10*3/uL 0.0-0.1 Methicillin resistant Staphylococcus aureus (MRSA) screening culture - 12:00 Methicillin resistant Staphylococcus aureus (MRSA) screening culture NEG NRG Encounters ACCT No. Visit Date/Time Discharge Status Pt. Type Provider Facility Loc./Unit Complaint [id number] 07/09/2012 15:23:00 07/09/2012 23:59:59 CLS Outpatient PARISA LUCIO APRN [id number] 04/22/2012 09:10:00 04/22/2012 23:59:59 CLS Outpatient [id number] 10/02/2017 15:00:00 10/02/2017 23:59:59 CLS Outpatient DEEPTI MELENDEZ MD [facility] REHAB R GROIN PAIN [id number] 05/27/2017 11:08:00 05/27/2017 23:59:59 CLS Preadmit DEEPTI MELENDEZ MD [facility] REHAB L LOWER QUADRANT ABDOMEN AND GROIN PAIN [id number] 05/13/2017 11:35:00 05/14/2017 11:10:00 DIS Outpatient DEEPTI MELEDNEZ MD [facility] LEFT OVARIAN CYST [id number] 05/11/2017 11:36:00 05/11/2017 15:58:00 DIS Outpatient DEEPTI MELENDEZ MD [facility] PREOP LEFT OVARIAN CYST [id number] 04/17/2017 07:38:00 04/17/2017 23:59:59 CLS Outpatient YVETTE SALOMON MD [facility] RAD HETEROGENEOUS OVARIES N83.9 [id number] 04/08/2017 13:44:00 04/08/2017 23:59:59 CLS Outpatient YVETTE SALOMON MD [facility] RAD LT PELVIC PAIN [id number] 02/24/2017 09:32:00 02/24/2017 23:59:59 CLS Outpatient YVETTE SALOMNO MD [facility] RAD L PELVIC PAIN [id number] 02/09/2017 22:36:00 02/10/2017 01:01:00 DIS Emergency KEEGAN RIVAS MD [facility] ER LT SIDED PELVIC PAIN,LT THIGH PAIN [id number] 12/04/2016 07:27:00 12/04/2016 13:40:00 DIS Outpatient FLAQUITO JONES DO [facility] CHRONIC PELVIC PAIN/ LLQ PAIN [id number] 12/03/2016 05:33:00 12/03/2016 10:17:00 DIS Outpatient FLAQUITO JONES DO [facility] PREOP CHRONIC PELVIC PAIN /LLQ PAIN [id number] 10/31/2016 18:59:00 10/31/2016 21:38:00 DIS Emergency KENDELL WRAY DO [facility] ER PELVIC PAIN [id number] 08/18/2016 16:12:00 08/18/2016 18:57:00 DIS Emergency MOSHE TRAYLOR MD [facility] ER ABD PAIN/PELVIC PAIN [id number] 05/26/2016 01:22:00 05/26/2016 03:24:00 DIS Emergency KENDELL WRAY DO [facility] ER VAGINAL BLEEDING,POSSIBLE MISCARRIAGE [id number] 05/23/2016 08:22:00 05/23/2016 10:20:00 DIS Emergency JULIANA ABEBE APRN [facility] [facility] ER VAG BLEEDING 9 WKS PREG [id number] 05/06/2016 12:29:00 05/06/2016 23:59:59 CLS Outpatient YVETTE SALOMON MD [facility] RAD 1ST TRIMESTER BLEEDING [id number] 04/24/2016 11:14:00 04/24/2016 13:05:00 DIS Emergency JULIANA ABEBE APRN [facility] ER POSS 7 WKS PREG/BLEEDING/ CRAMPING [id number] 11/06/2015 11:03:00 11/06/2015 23:59:59 CLS Outpatient YVETTE SALOMON MD [facility] RAD LEFT SIDED PELVIC PAIN, CHECK IUD [id number] 06/14/2015 11:13:00 06/14/2015 23:59:59 CLS Outpatient JOSELINE WESLEY [facility] LAB ANXIETY, DEPRESSION,PALPITATION [id number] 05/16/2015 13:35:00 05/16/2015 23:59:59 CLS Outpatient CORY NEWTON MD [facility] CARD ANXIETY,DEPRESSION, CHEST PAIN SYNDROME [id number] 05/09/2015 10:16:00 05/09/2015 23:59:59 CLS Outpatient CORY NEWTON MD [facility] CARD ANXIETY, DEPRESSION, PALPITATION [id number] 04/04/2015 20:45:00 04/04/2015 21:34:00 DIS Emergency KENDELL WRAY DO [facility] ER DIZZINESS [id number] 12/01/2014 21:21:00 12/01/2014 21:49:00 DIS Emergency PARISA WOO DO [facility] ER PELVIC PAIN [id number] 08/19/2014 18:41:00 08/19/2014 21:41:00 DIS Emergency EDUAR CABRERA [facility] ER PELVIS PAIN [id number] 07/20/2014 20:35:00 07/20/2014 22:24:00 DIS Emergency JULIANA ABEBE APRN [facility] ER PELVIC PAIN [id number] 06/01/2014 20:58:00 06/01/2014 23:41:00 DIS Emergency KAMALA DOKENDELL K [facility] ER ABD PAIN [id number] 05/28/2014 16:58:00 05/28/2014 18:09:00 DIS Emergency KAMALA DOKENDELL [facility] ER LOWER PELVIC PAIN [id number] 05/18/2014 19:19:00 05/18/2014 21:55:00 DIS Emergency PARISA WOO DO R[place] [facility] ER VOMITING BLOOD [id number] 05/18/2014 09:48:00 05/18/2014 16:00:00 DIS Outpatient FLAQUITO JONES DO [facility] SDC LEFT LOWER QUADRANT PAIN [id number] 05/17/2014 14:20:00 05/17/2014 23:59:59 CLS Outpatient KASHFLAQUITO ALCANTARA DO [facility] PREOP LEFT LOWER QUADRANT PAIN [id number] 08/21/2013 18:45:00 08/24/2013 09:45:00 DIS Inpatient YVETTE SALOMON MD [facility] WS INDUCTION [id number] 08/17/2013 18:24:00 08/17/2013 19:35:00 DIS Outpatient YVETTE SALOMON MD [facility] WSo LOWER ABD PAIN [id number] 07/13/2013 16:23:00 07/13/2013 23:59:59 CLS Emergency [id number] 07/13/2013 16:44:00 07/13/2013 21:05:00 DIS Outpatient YVETTE SALOMON MD [facility] WSo FALL ABD PAIN [id number] 06/24/2013 22:10:00 06/25/2013 01:15:00 DIS Outpatient YVETTE SALOMON MD [facility] WSo BACK PAIN; PELVIC PAIN [id number] 06/09/2013 18:44:00 06/09/2013 20:15:00 DIS Outpatient YVETTE SALOMON MD [facility] WSo DOG STEPPED ON STOMACH [id number] 04/15/2013 09:38:00 04/15/2013 23:59:59 CLS Outpatient YVETTE SALOMON MD [facility] RAD FUNDAL HEIGHT DISCREPANCY [id number] 03/25/2013 14:23:00 03/25/2013 18:35:00 DIS Emergency STEPHON VILLEGAS, JIM Sim [facility] ER LOWER ABD PAIN/18 WKS PREG [id number] 01/31/2013 18:49:00 01/31/2013 22:46:00 DIS Emergency EDUAR CABRERA [facility] ER ELEVATED HEART RATE 10 WKS [id number] 01/21/2013 10:00:00 01/21/2013 23:59:59 CLS Outpatient YVETTE SALOMON MD [facility] RAD FUNDAL HEIGHT DISCREPANCY [id number] 12/01/2014 21:22:00 Document Registration [id number] 08/01/2012 21:57:00 Document Registration [id number] 04/06/2012 14:15:00 Document Registration [id number] 03/16/2012 18:35:00 Document Registration [id number] 03/02/2012 21:16:00 Document Registration [id number] 06/11/2010 16:53:00 Document Registration
[2017-10-06] MEDS ORDERED: morphine INJ 10 MG/ML 1ML (SYR OR VIAL) IM STA ×2 (22:30→22:33)
[2017-10-06] MEDS ORDERED: KETOROLAC 60 MG/2 ML VIAL IM STA (22:30)
[2017-10-06 22:49] LABS: BILIRUBIN,URINE NEGATIVE (NEGATIVE); CLARITY,URINE CLEAR; COLOR,URINE YELLOW; GLUCOSE, URINE (UA) NEGATIVE (NEGATIVE); KETONES,URINE NEGATIVE (NEGATIVE); LEUKOCYTE ESTERASE ,URINE 1+ (NEGATIVE); NITRITE,URINE NEGATIVE (NEGATIVE); PH,URINE 6 (5-9); PROTEIN,URINE 1+ (NEGATIVE); UROBILINOGEN,URINE NORMAL (NORMAL)
[2017-10-06 23:00] LABS: BASOPHILS # (AUTO) 0.1 10^3/uL (0.0-0.1); BASOPHILS % (AUTO) 1 % (0-10); EOSINOPHILS # (AUTO) 0.4 10^3/uL (0.0-0.3); EOSINOPHILS % (AUTO) 4 % (0-10); HEMATOCRIT 43 % (35-52); LYMPHOCYTES # (AUTO) 3.8 X 10^3 (1.0-4.0); LYMPHOCYTES % (AUTO) 38 % (12-44); MEAN CORPUSCULAR HEMOGLOBIN 31 PG (25-34); MEAN CORPUSCULAR HGB CONC 35 G/DL (32-36); MEAN CORPUSCULAR VOLUME 90 FL (80-99); MONOCYTES # (AUTO) 0.8 X 10^3 (0.0-1.0); MONOCYTES % (AUTO) 8 % (0-12); NEUTROPHILS # (AUTO) 5.1 X 10^3 (1.8-7.8); NEUTROPHILS % (AUTO) 50 % (42-75); PLATELET COUNT 270 10^3/uL (130-400); RED BLOOD COUNT 4.81 10^6/uL (4.35-5.85); WHITE BLOOD COUNT 10.1 10^3/uL (4.3-11.0)
[2017-10-06 23:02] LABS: RBC,URINE TNTC /HPF
[2017-10-06 23:04] LABS: BACTERIA,URINE TRACE /HPF; WBC,URINE 0-2 /HPF
--- NOTE | 2017-10-06 23:07 | ED GU-Female ---
General Chief Complaint: General Problems/Pain Stated Complaint: PELVIC PAIN Nursing Triage Note: Patient advises she has been experiencing pelvic pain secondary to hx. of fibroids and endometriosis. She advises tonight that she is experiencing vaginal pain as well. Nursing Sepsis Screen: No Definite Risk Source: patient Exam Limitations: no limitations History of Present Illness Date Seen by Provider: Oct 06, 2017 Time Seen by Provider: 22:25 Initial Comments Here with report of right sided pelvic pain that is radiating to the vagina. This concerned her so she presented. Patient has extensive history of pelvic pain and endometriosis with prior surgeries. Did have surgery in April of last year and had left salpingo-oophorectomy as well as mass take down on the right ovary and extensive lysis of adhesions within the pelvis by Dr. Douglass. She is currently in physical therapy for pelvic pain. She has a Mirena implanted and is currently on her menstrual period. Denies vaginal discharge. She took one of her pain pills but the pain is not better after one hour and she has the radiation to the vagina which scared her. She presents for further evaluation. Denies fever or chills. Denies nausea or vomiting. Timing/Duration: this evening, changing over time Severity/Quality: moderate, aching, sharp Location: suprapubic Radiation: vaginal Activities at Onset: none Prior Genitourinary Problems: none Sexual [place] History: less than 2 months ago, single partner Modifying Factors: Improves With Resting Associated Symptoms: abdominal pain, No dysuria, No fever/chills, No lower back pain, No nausea/vomiting, No urinary frequency Allergies and Home Medications Allergies Coded Allergies: doxycycline (Verified Allergy, Unknown, 05/11/17) Home Medications Oxycodone HCl/Acetaminophen 1 Each Tablet, 1-2 TAB PO Q4H PRN for PAIN Prescribed by: DEEPTI BORJA on 05/13/17 1310 Patient Home Medication List Home Medication List Reviewed: Yes Constitutional: see HPI, No chills, No fever Respiratory: no symptoms reported Cardiovascular: no symptoms reported Gastrointestinal: see HPI, abdominal pain, No nausea, No vomiting Genitourinary: see HPI, pain : No LMP: Oct 03, 2017 Musculoskeletal: no symptoms reported Skin: no symptoms reported, No change in color Psychiatric/Neurological: Anxiety, Denies Weakness Past [id number] Hx Patient Social History Alcohol Use: Denies Use Recreational Drug Use: No Smoking Status: Never a Smoker 2nd Hand Smoke Exposure: No Recent Foreign Travel: No Contact w/Someone Who Travel: No Recent Infectious Disease Expo: No Recent Hopitalizations: No Physical Abuse: No Sexual Abuse: No Immunizations Up To Date Tetanus Booster (TDap): Less than 5yrs Date of Pneumonia Vaccine: Apr 28, 2011 Date of Influenza Vaccine: Jun 07, 2016 Seasonal Allergies Seasonal Allergies: No Surgeries History of Surgeries: Yes (knee sx x3, wisdom teeth, DXLS X2, PELVIC "SCOPE" ) Surgeries: Abdominal, Appendectomy, Oophorectomy (left), Orthopedic Respiratory History of Respiratory Disorde: No Cardiovascular History of Cardiac Disorders: No Neurological History of Neurological Disord: No Reproductive System Last Menstrual Period: Oct 02, 2017 Hx Reproductive Disorders: Yes (CHRONIC PELVIC PAIN) Sexually Transmitted Disease: No HIV/AIDS: No Female Reproductive Disorders: Denies, Ovarian Cyst HEART SPECIALIST History: IUD Gastrointestinal History of Gastrointestinal Di: No Musculoskeletal History of Musculoskeletal Dis: No Endocrine History of Endocrine Disorders: No HEENT Loss of Vision: Bilateral Hearing Impairment: Denies Cancer History of Cancer: No Psychosocial History of Psychiatric Problem: Yes Behavioral Health Disorders: Anxiety Suicide Risk Score: 0 Integumentary History of Skin or Integumenta: No Blood Transfusions History of Blood Disorders: No Adverse Reaction to a Blood Tr: No (N/A) Reviewed Nursing Assessment Reviewed/Agree w Nursing PMH: Yes Family Medical History Significant Family History: Cancer Family Medial History: Cancer (father has terminal brain cancer. ) 03 FATHER Family history: Hypertension (father ) 03 FATHER Hypercholesterolemia 03 MOTHER No Family History of: Abdominal aortic aneurysm Evangeline's disease Alcoholism Aphasia Physical Exam Vital Signs Vital Signs - First Documented 10/06/17 22:40 Temp 98.4 Pulse 130 Resp 14 B/P (MAP) 132/109 (117) Pulse Ox 98 O2 Delivery Room Air Capillary Refill : Less Than 3 Seconds General Appearance: WD/WN, mild distress, other (crying) HEENT: PERRL/EOMI, pharynx normal Neck: full range of motion, supple Cardiovascular: no murmur, tachycardia Respiratory: lungs clear, normal breath sounds Gastrointestinal: normal bowel sounds, non tender, soft, No guarding, No rebound, No tenderness Back: normal inspection, no CVA tenderness, no vertebral tenderness Neurologic/Psychiatric: alert, oriented x 3 Skin: normal color, warm/dry Progress/Results/Core Measures Suspected Sepsis Recent Fever Within 48 Hours: No Infection Criteria Present: None New/Unexplained Altered Menta: No Sepsis Screen: No Definite Risk Sepsis Diagnosis: SIRS Temperature:98.4 Pulse: 130 Respiratory Rate: 14 Laboratory Tests 10/06/17 22:52: White Blood Count 10.1 Blood Pressure 132 /109 Mean: 117 Laboratory Tests 10/06/17 22:52: Platelet Count 270 Results/Orders Lab Results Laboratory Tests Test 10/06/17 22:37 10/06/17 22:52 Range/Units Urine Color YELLOW Urine Clarity CLEAR Urine pH 6 5-9 Urine Specific [place] 1.025 H 1.016-1.022 Urine Protein 1+ H NEGATIVE Urine Glucose (UA) NEGATIVE NEGATIVE Urine Ketones NEGATIVE NEGATIVE Urine Nitrite NEGATIVE NEGATIVE Urine Bilirubin NEGATIVE NEGATIVE Urine Urobilinogen NORMAL NORMAL MG/DL Urine Leukocyte Esterase 1+ H NEGATIVE Urine RBC (Auto) 5+ H NEGATIVE Urine RBC TNTC H /HPF Urine WBC 0-2 /HPF Urine Squamous Epithelial Cells 5-10 /HPF Urine Crystals NONE /LPF Urine Bacteria TRACE /HPF Urine Casts NONE /LPF Urine Mucus NEGATIVE /LPF Urine Culture Indicated NO White Blood Count 10.1 4.3-11.0 10^3/uL Red Blood Count 4.81 4.35-5.85 10^6/uL Hemoglobin 15.0 11.5-16.0 G/DL Hematocrit 43 35-52 % Mean Corpuscular Volume 90 80-99 FL Mean Corpuscular Hemoglobin 31 25-34 PG Mean Corpuscular Hemoglobin Concent 35 32-36 G/DL Red Cell Distribution Width 12.0 10.0-14.5 % Platelet Count 270 130-400 10^3/uL Mean Platelet Volume 10.0 7.4-10.4 FL Neutrophils (%) (Auto) 50 42-75 % Lymphocytes (%) (Auto) 38 12-44 % Monocytes (%) (Auto) 8 0-12 % Eosinophils (%) (Auto) 4 0-10 % Basophils (%) (Auto) 1 0-10 % Neutrophils # (Auto) 5.1 1.8-7.8 X 10^3 Lymphocytes # (Auto) 3.8 1.0-4.0 X 10^3 Monocytes # (Auto) 0.8 0.0-1.0 X 10^3 Eosinophils # (Auto) 0.4 H 0.0-0.3 10^3/uL Basophils # (Auto) 0.1 0.0-0.1 10^3/uL My Orders Orders - JIM SZYMANSKI MD Cbc With Automated Diff (10/06/17 22:30) Ua Culture If Indicated (10/06/17 22:30) Ketorolac Injection (Toradol Injection) (10/06/17 22:30) Morphine Injection (Morphine Injection (10/06/17 22:30) Morphine Injection (Morphine Injection (10/06/17 22:33) Hcg,Qualitative Urine (10/06/17 23:19) Vital Signs/I&O Vital Sign - Last 12Hours 10/06/17 22:40 Temp 98.4 Pulse 130 Resp 14 B/P (MAP) 132/109 (117) Pulse Ox 98 O2 Delivery Room Air Capillary Refill : Less Than 3 Seconds Blood Pressure Mean: 117 Progress Note : Progress Note Seen and evaluated. Labs and UA ordered. Morphine 10 mg IM and Toradol 60 mg IM. I did review her medical history and the chart including previous operative note. Patient reports that they were trying to keep the right ovary due to her young age although she is not sure that that's going to work because of persistence of pain. Monitor patient. 1115: Patient's pain is resolved at this point. She has a ride available. She will follow-up with Dr. Douglass. Discharged home with return precautions. Patient verbalize understanding instructions and agreement with plan. Departure Impression Impression: Primary Impression: Pelvic pain Disposition: 01 HOME, SELF-CARE Condition: Improved Departure-Patient Inst. Decision time for Depature: 23:20 Referrals: DEEPTI DOUGLASS MD (PCP/Family) Primary Care Physician Patient Instructions: Acute Pelvic Pain (DC), Endometriosis (DC) Add. Discharge Instructions: All discharge instructions reviewed with patient and/or family. Voiced understanding. Follow-up with Dr. Douglass in one to 2 days for recheck. Call his office tomorrow for appointment. Return for worse pain, fever, vomiting, weakness, breathing problems or other concerns as needed. Continue home medications as previously prescribed. You may use ibuprofen 600 mg every 8 hours as needed for pain as well. Copy Copies To 1: DEEPTI DOUGLASS MD, TIMOTHY D MD Oct 06, 2017 23:07
[2017-10-06 23:45] VITALS: BP 116/86
== END 2017-10-06 23:44 | disposition home or self-care (01) ==
LOC: EDUNIT# 22:06 → ER 22:07
DX: R10.2 Pelvic and perineal pain (principal); F41.9 Anxiety disorder, unspecified; Z85.841 Personal history of malignant neoplasm of brain; Z87.19 Personal history of other diseases of the digestive system; Z90.722 Acquired absence of ovaries, bilateral; Z88.1 Allergy status to other antibiotic agents; Z90.49 Acquired absence of other specified parts of digestive tract; Z97.5 Presence of (intrauterine) contraceptive device
CPT/HCPCS: 36415; 81000; 84703; 85025; 96372; 99284

== ENCOUNTER 2017-11-28 20:01 | Emergency (ER) | payer MEDICAID ==
[~2017-11-28] VITALS: Ht 160 cm; Wt 77.1 kg
--- OUTSIDE RECORDS SUMMARY | 2017-11-28 20:07 | XMS REPORT | Clinical Summary ---
Author Author [facility] Organization [facility] Address Unknown Phone Unavailable Care Team Providers Care Senior Major Gifts Officer Name Role Phone Sissy Chavez MD Unavailable Unavailable Sissy Hyot PSYD Unavailable Giselle Palacio MD Unavailable No Pcp, Na PCP Unavailable Source Comments Some departments are not documenting in the electronic medical record. If you do not see the information that you expected, contact Release of Information in the Health Information Management department at [phone] for further assistance in locating additional records.[facility] Allergies Active Allergy Reactions Severity Noted [...]
--- OUTSIDE RECORDS SUMMARY | 2017-11-28 20:07 | XMS REPORT | Continuity of Care Document ---
Author Author [employer] Organization [facility] Address Unknown Phone Unavailable Care Team Providers Care Social Studies Teacher Name Role Phone [employer] Unavailable Unavailable Problems Medications Allergies, Adverse Reactions, Alerts Immunizations Results Vital Signs Encounters Location Location Details Encounter Type Encounter Number Reason For Visit Attending Provider ADM Date DC Date Status Source O LYNDA [place] 05/05/2017 05/05/2017 Active [facility] Procedures Plan of Care Social History Assessment and Plan Family History Advance Directives Functional Status
--- OUTSIDE RECORDS SUMMARY | 2017-11-28 20:10 | XMS REPORT | Continuity of Care Document ---
Author Author Formerly [facility] Address Unknown Phone Unavailable Allergies Active Description Code Type Severity Reaction Onset Reported/Identified Relationship to Patient Clinical Status Yes doxycycline Drug Allergy 11/11/2011 Yes doxycycline [id number] Drug Allergy Unknown N/A 05/11/2017 Medications There is no data. Problems Date Dx Coded Attending Type Code Diagnosis Diagnosed By 06/25/1353 NORA VILLEGAS, DEEPTI Hernandez Ot R10.84 GENERALIZED ABDOMINAL PAIN 06/11/2010 Ot 717.9 06/11/2010 Ot 719.46 03/11/2011 [...] - GENERAL 11/11/2011 V74.5 STD SCREEN 01/14/2012 NAVEED MALDONADOPARISA Sauer 616.10 VAGINITIS VULVOVAGINITIS UNSPECIFIED 01/14/2012 NAVEED MALDONADOPARISA Sauer Dash 787.02 NAUSEA ALONE 01/14/2012 616.10 VAGINITIS VULVOVAGINITIS [...] INOCULATI 06/09/2013 YVETTE SALOMON MD, Ot V06.1 SYBUTWEPPO-KPXFMBI-PCIUZIFCE, COMBINED [ 06/25/2013 YVETTE SALOMON MD Ot [...] UMM VILLEGAS, YVETTE Rao Ot 646.90 12/01/2014 YVETTE SALOMON MD Ot 649.63 12/01/2014 FENECH DO, FLAQUITO S Ot 789.04 12/01/2014 FENECH DO, FLAQUITO S Ot V72.63 12/01/2014 FENECH DO, FLAQUITO S Ot V74.8 12/01/2014 PARISA WOO DO Ot 625.9 FEM GENITAL SYMPTOMS NOS 12/01/2014 UMM VILLEGAS, YVETTE Rao Ot 646.90 12/01/2014 YVETTE SALOMON MD Ot 649.63 12/01/2014 FENECH DO, FLAQUITO S Ot 789.04 12/01/2014 FENECH DO, FLAQUITO S Ot V72.63 12/01/2014 FENECH DO, FLAQUITO S Ot V74.8 04/04/2015 YVETTE SALOMON MD Ot 646.90 04/04/2015 YVETTE SALOMON MD Ot [...] FENECH DO, FLAQUITO S Ot V74.8 05/09/2015 YVETTE SALOMON MD Ot 646.90 05/09/2015 YVETTE SALOMON MD Ot 649.63 05/09/2015 FENECH DO, FLAQUITO S Ot 789.04 05/09/2015 FENECH DO, FLAQUITO S Ot V72.63 05/09/2015 FENECH DO, FLAQUITO S Ot V74.8 05/09/2015 KENDELL WRAY DO Ot 780.4 05/21/2015 AMAN VILLEGAS, CORY Rao Ot F41.8 05/21/2015 AMAN VILLEGAS, CORY Rao Ot R00.2 05/21/2015 AMAN VILLEGAS, CORY Rao Ot R07.89 05/21/2015 AMAN VILLEGAS, CORY Rao Ot F41.8 05/21/2015 AMAN VILLEGAS, CORY Rao Ot R00.2 05/21/2015 AMAN VILLEGAS, CORY Rao Ot R07.89 05/28/2015 AMAN VILLEGAS, CORY Rao Ot F41.8 05/28/2015 AMAN VILLEGAS, CORY Rao Ot R00.2 05/28/2015 AMAN VILLEGAS, CORY Rao Ot R07.89 06/14/2015 YVETTE SALOMON MD Ot 646.90 06/14/2015 YVETTE SALOMON MD Ot 649.63 06/14/2015 FENECH DO, FLAQUITO S Ot 789.04 06/14/2015 FENECH DO, FLAQUITO S Ot V72.63 06/14/2015 FENECH DO, FLAQUITO S Ot V74.8 06/14/2015 CORY NEWTON MD Ot F41.8 06/14/2015 AMAN VILLEGAS, CORY Rao Ot R00.2 06/14/2015 AMAN VILLEGAS, CORY Rao Ot R07.89 06/14/2015 CORY NEWTON MD Ot F41.8 06/14/2015 AMAN VILLEGAS, CORY Rao Ot R00.2 06/14/2015 AMAN VILLEGAS, CORY Rao Ot R07.89 06/28/2015 JOSELINE WESLEY Ot F41.8 [...] DATE DISCREPANCY, ANTEPARTU 04/24/2016 FLAQUITO JONES DO Ot 789.04 ABDOMINAL PAIN, [...] LESS THAN 8 WEEKS GESTATION OF 05/07/2016 UMM VILLEGAS, YVETTE Rao Ot 646.90 PREG COMPL NOS-UNSPEC 05/07/2016 YVETTE SALOMON MD Ot 649.63 UTERINE SIZE DATE DISCREPANCY, ANTEPARTU 05/07/2016 ROBERT DASH FLAQUITO S Ot 789.04 ABDOMINAL PAIN, LEFT LOWER QUADRANT 05/07/2016 ROBERT DASH FLAQUITO S Ot V72.63 PRE-PROCEDURAL LABORATORY EXAMINATION 05/07/2016 ROBERT DASH FLAQUITO S Ot V74.8 SCREEN-BACTERIAL DIS NEC [...] 8 WEEKS GESTATION OF 05/21/2016 YVETTE SALOMON MD Ot O46.91 ANTEPARTUM HEMORRHAGE, UNSPECIFIED, FIRS 05/21/2016 YVETTE SALOMON MD, Ot Z3A.01 LESS THAN 8 WEEKS GESTATION OF 05/23/2016 JULIANA ABEBE APRN Ot O03.9 COMPLETE OR UNSP SPONTANEOUS [place] 05/23/2016 JULIANA ABEBE MOBILE HOMES REPAIRER Ot O20.0 THREATENED 05/23/2016 JULIANA ABEBE MOBILE HOMES REPAIRER Ot Z3A.08 8 WEEKS GESTATION OF 05/26/2016 VARUN WRAY DOA K Ot O03.9 COMPLETE OR UNSP SPONTANEOUS [place] 05/26/2016 VARUN WRAY DOA K Ot Z3A.08 8 WEEKS GESTATION OF 05/26/2016 JULIANA ABEBE MOBILE HOMES REPAIRER Ot O03.9 COMPLETE OR UNSP SPONTANEOUS [place] 05/26/2016 JULIANA ABEBE MOBILE HOMES REPAIRER Ot O20.0 THREATENED 05/26/2016 JULIANA ABEBE MOBILE HOMES REPAIRER Ot Z3A.08 8 WEEKS GESTATION OF 05/27/2016 VARUN WRAY DOA K Ot O03.9 COMPLETE OR UNSP SPONTANEOUS [place] 05/27/2016 VARUN WRAY DOA K Ot Z3A.08 8 WEEKS GESTATION OF 05/31/2016 VARUN WRAY DOA K Ot O03.9 COMPLETE OR UNSP SPONTANEOUS WI 05/31/2016 VARUN WRAY DOA K Ot Z3A.08 8 WEEKS GESTATION OF 06/11/2016 JULIANA ABEBE MOBILE HOMES REPAIRER Ot O03.9 COMPLETE OR UNSP SPONTANEOUS [place] 06/11/2016 JULIANA ABEBE MOBILE HOMES REPAIRER Ot O20.0 THREATENED 06/11/2016 JULIANA ABEBE MOBILE HOMES REPAIRER Ot Z3A.08 8 WEEKS GESTATION OF 08/18/2016 LAYTON VILLEGAS, MOSHE T Ot N89.8 OTHER SPECIFIED NONINFLAMMATORY DISORDER [...] Ot N89.8 OTHER SPECIFIED NONINFLAMMATORY DISORDER 08/27/2016 MARY TRAYLOR MDUA T Ot R10.2 PELVIC AND PERINEAL PAIN [...] WESLEY Ot R00.2 PALPITATIONS 10/31/2016 YVETTE SALOMON MD Ot R10.2 PELVIC AND PERINEAL PAIN 10/31/2016 [...] Z97.5 PRESENCE OF (INTRAUTERINE) CONTRACEPTIVE 12/03/2016 ROBERT FLAQUITO DASH S Ot R10.2 PELVIC AND PERINEAL PAIN 12/03/2016 ROBERT FLAQUITO DASH S Ot R10.32 LEFT LOWER QUADRANT PAIN 12/03/2016 ROBERT FLAQUITO DASH S Ot Z01.818 ENCOUNTER FOR OTHER PREPROCEDURAL EXAMIN 12/04/2016 FLAQUITO JONES DO S Ot N73.6 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 PERITONEAL ADHESIONS (POST 12/04/2016 KASHQUINTON FLAQUITO DASH S Ot N83.02 FOLLICULAR CYST OF LEFT OVARY 12/08/2016 FLAQUITO JONES DO S Ot N73.6 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 PERITONEAL ADHESIONS (POST 12/08/2016 KASHQUINTON FLAQUITO DASH S Ot N83.02 FOLLICULAR CYST OF LEFT OVARY 12/10/2016 KASHQUINTON FLAQUITO DASH S Ot N73.6 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 PERITONEAL ADHESIONS (POST 12/10/2016 ROBERT FLAQUITO DASH S Ot N83.02 FOLLICULAR CYST OF LEFT OVARY 12/19/2016 FLAQUITO JONES DO S Ot N73.6 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 PERITONEAL ADHESIONS (POST 12/19/2016 ROBERT FLAQUITO DASH S Ot N83.02 FOLLICULAR CYST OF LEFT OVARY 02/09/2017 UMM VILLEGAS, YVETTE Rao Ot 646.90 PREG COMPL NOS-UNSPEC 02/09/2017 UMM VILLEGAS, YVETTE Rao Ot 649.63 UTERINE SIZE DATE DISCREPANCY, ANTEPARTU 02/09/2017 FLAQUITO JONES DO S Ot 789.04 ABDOMINAL PAIN, LEFT LOWER QUADRANT 02/09/2017 KASHFLAQUITO ALCANTARA DO S Ot V72.63 PRE-PROCEDURAL LABORATORY EXAMINATION 02/09/2017 FLAQUITO JONES DO S Ot V74.8 SCREEN-BACTERIAL DIS NEC 02/09/2017 CORY NEWTON MD Ot F41.8 OTHER SPECIFIED ANXIETY DISORDERS 02/09/2017 CORY NEWTON MD Ot R00.2 PALPITATIONS 02/09/2017 CORY NEWTON MD Ot R07.89 OTHER CHEST PAIN 02/09/2017 AMAN MD, BASHAR J Ot F41.8 OTHER SPECIFIED ANXIETY DISORDERS 02/09/2017 AMAN VILLEGAS, CORY Rao Ot R00.2 PALPITATIONS 02/09/2017 AMAN VILLEGAS, CORY Rao Ot R07.89 OTHER CHEST PAIN 02/09/2017 JOSELINE [...] PERINEAL PAIN 04/22/2017 YVETTE SALOMON MD Ot R10.2 PELVIC AND PERINEAL PAIN 04/22/2017 YVETTE SALOMON MD Ot N83.9 NONINFLAMMATORY DISORD OF OVARY, FALLOP 04/23/2017 YVETTE SALOMON MD Ot N83.9 NONINFLAMMATORY DISORD OF OVARY, FALLOP 04/28/2017 YVETTE SALOMON MD, Ot N83.9 NONINFLAMMATORY DISORD [...] ANTEPARTUM HEMORRHAGE, UNSPECIFIED, FIRS 05/07/2017 YVETTE SALOMON MD, Ot Z3A.01 LESS THAN 8 WEEKS GESTATION OF 05/07/2017 YVETTE SALOMON MD, Ot N83.9 NONINFLAMMATORY DISORD OF OVARY, FALLOP 05/07/2017 YVETTE SALOMON MD Ot Z97.5 PRESENCE OF (INTRAUTERINE) CONTRACEPTIVE 05/07/2017 YVETTE SALOMON MD Ot R10.2 PELVIC AND PERINEAL PAIN 05/07/2017 YVETTE SALOMON MD, Ot N83.9 NONINFLAMMATORY DISORD OF OVARY, FALLOP 05/11/2017 DEEPTI MELENDEZ MD, Ot D64.9 ANEMIA, UNSPECIFIED 05/11/2017 DEEPTI MELENDEZ MD, Ot N83.9 NONINFLAMMATORY DISORD OF OVARY, FALLOP 05/11/2017 DEEPTI MELENDEZ MD Ot Z01.818 ENCOUNTER FOR OTHER PREPROCEDURAL EXAMIN 05/12/2017 DEEPTI MELENDEZ MD, Ot D64.9 ANEMIA, UNSPECIFIED 05/12/2017 DEEPTI MELENDEZ MD, Ot N83.9 NONINFLAMMATORY DISORD OF OVARY, FALLOP 05/12/2017 DEEPTI MELENDEZ MD Ot Z01.818 ENCOUNTER FOR OTHER PREPROCEDURAL EXAMIN 05/13/2017 YVETTE SALOMON MD Ot 646.90 PREG COMPL NOS-UNSPEC 05/13/2017 YVETTE SALOMON MD Ot 649.63 UTERINE SIZE DATE DISCREPANCY, ANTEPARTU 05/13/2017 FLAQUITO JONES DO Ot 789.04 ABDOMINAL PAIN, LEFT LOWER QUADRANT 05/13/2017 FLAQUITO JONES DO Ot V72.63 PRE-PROCEDURAL LABORATORY EXAMINATION 05/13/2017 FLAQUITO JONES DO Ot V74.8 SCREEN-BACTERIAL DIS NEC 05/13/2017 CORY NEWTON MD, Ot F41.8 OTHER SPECIFIED ANXIETY DISORDERS 05/13/2017 CORY NEWTON MD Ot R00.2 PALPITATIONS 05/13/2017 CORY NEWTON MD Ot R07.89 OTHER CHEST PAIN 05/13/2017 AMAN MD, BASHAR J Ot F41.8 OTHER SPECIFIED ANXIETY DISORDERS 05/13/2017 AMAN VILLEGAS, CORY Rao Ot R00.2 PALPITATIONS 05/13/2017 AMAN VILLEGAS, CORY Rao Ot R07.89 OTHER CHEST PAIN 05/13/2017 JOSELINE WESLEY Ot F41.8 OTHER SPECIFIED ANXIETY DISORDERS 05/13/2017 JOESLINE WESLEY Ot I47.1 SUPRAVENTRICULAR TACHYCARDIA 05/13/2017 JOSELINE WESLEY Ot R00.2 PALPITATIONS 05/13/2017 YVETTE SALOMON MD Ot R10.2 PELVIC AND PERINEAL PAIN 05/13/2017 YVETTE SALOMON MD Ot O46.91 ANTEPARTUM HEMORRHAGE, UNSPECIFIED, FIRS 05/13/2017 YVETTE SALOMON MD, Ot Z3A.01 LESS THAN 8 WEEKS GESTATION OF 05/13/2017 YVETTE SALOMON MD Ot N83.9 NONINFLAMMATORY DISORD OF OVARY, FALLOP 05/13/2017 YVETTE SALOMON MD Ot Z97.5 PRESENCE OF (INTRAUTERINE) CONTRACEPTIVE 05/13/2017 [...] DISORD OF OVARY, FAL 05/14/2017 DEEPTI MELENDEZ MD, Ot Z23 ENCOUNTER FOR IMMUNIZATION 05/18/2017 DEEPTI MELENDEZ MD Ot D27.0 BENIGN NEOPLASM OF RIGHT OVARY 05/18/2017 DEEPTI MELENDEZ MD Ot D27.1 BENIGN NEOPLASM OF LEFT OVARY 05/18/2017 DEEPTI MELENDEZ MD Ot N83.8 OTH NONINFLAMMATORY DISORD OF OVARY, FAL 05/18/2017 DEEPTI MELENDEZ MD, Ot Z23 ENCOUNTER FOR IMMUNIZATION 09/15/2017 YVETTE SALOMON MD Ot 646.90 PREG COMPL NOS-UNSPEC 09/15/2017 YVETTE SALOMON MD Ot 649.63 UTERINE SIZE DATE DISCREPANCY, ANTEPARTU 09/15/2017 ROBERT DASH FLAQUITO Alves Ot 789.04 ABDOMINAL PAIN, LEFT LOWER QUADRANT 09/15/2017 ROBERT DASH FLAQUITO Alves Ot V72.63 PRE-PROCEDURAL LABORATORY EXAMINATION 09/15/2017 ROBERT DASH FLAQUITO Alves Ot V74.8 SCREEN-BACTERIAL DIS NEC 09/15/2017 CORY NEWTON MD Ot F41.8 OTHER SPECIFIED ANXIETY DISORDERS 09/15/2017 CORY NWETON MD Ot R00.2 PALPITATIONS 09/15/2017 CORY NEWTON MD Ot R07.89 OTHER CHEST PAIN 09/15/2017 CORY NEWTON MD Ot F41.8 OTHER SPECIFIED ANXIETY DISORDERS 09/15/2017 CORY NEWTON MD Ot R00.2 PALPITATIONS 09/15/2017 CORY NEWTON MD Ot R07.89 OTHER CHEST PAIN 09/15/2017 JOSELINE WESLEY Ot F41.8 OTHER SPECIFIED ANXIETY DISORDERS 09/15/2017 JOSELINE WESLEY Ot I47.1 SUPRAVENTRICULAR TACHYCARDIA 09/15/2017 JOSELINE WESLEY Ot R00.2 PALPITATIONS 09/15/2017 YVETTE SALOMON MD, Ot R10.2 PELVIC AND PERINEAL PAIN 09/15/2017 YVETTE SALOMON MD Ot O46.91 ANTEPARTUM HEMORRHAGE, UNSPECIFIED, FIRS 09/15/2017 YVETTE SALOMON MD, Ot Z3A.01 LESS THAN 8 WEEKS GESTATION OF 09/15/2017 YVETTE SALOMON MD, Ot N83.9 NONINFLAMMATORY DISORD OF OVARY, FALLOP 09/15/2017 YVETTE SALOMON MD, Ot Z97.5 PRESENCE OF (INTRAUTERINE) CONTRACEPTIVE 09/15/2017 [...] V74.8 SCREEN-BACTERIAL DIS NEC 09/28/2017 CORY NEWTON MD Ot F41.8 OTHER [...] PELVIC AND PERINEAL PAIN 09/28/2017 YVETTE SALOMON MD Ot O46.91 ANTEPARTUM HEMORRHAGE, UNSPECIFIED, FIRS 09/28/2017 YVETTE SALOMON MD, Ot Z3A.01 LESS THAN 8 WEEKS GESTATION OF 09/28/2017 YVETTE SALOMON MD, Ot N83.9 NONINFLAMMATORY DISORD OF OVARY, FALLOP 09/28/2017 YVETTE SALOMON MD, Ot Z97.5 PRESENCE OF (INTRAUTERINE) CONTRACEPTIVE 09/28/2017 YVETTE SALOMON MD Ot R10.2 PELVIC AND PERINEAL PAIN 09/28/2017 YVETTE SALOMON MD Ot N83.9 NONINFLAMMATORY DISORD OF OVARY, FALLOP 10/06/2017 JIM SZYMANSKI MD Ot F41.9 ANXIETY DISORDER, UNSPECIFIED 10/06/2017 JIM SZYMANSKI MD Ot R10.2 PELVIC AND PERINEAL PAIN 10/06/2017 JIM SZYMANSKI MD Ot Z85.841 PERSONAL HISTORY OF MALIGNANT NEOPLASM O 10/06/2017 JIM SZYMANSKI MD Ot Z87.19 PERSONAL HISTORY OF OTHER DISEASES OF 10/06/2017 JIM SZYMANSKI MD Ot Z88.1 ALLERGY STATUS TO OTHER ANTIBIOTIC AGENT 10/06/2017 JIM SZYMANSKI MD Ot Z90.49 ACQUIRED ABSENCE OF OTHER SPECIFIED PART 10/06/2017 JIM SZYMANSKI MD Ot Z90.722 ACQUIRED ABSENCE OF OVARIES, BILATERAL 10/06/2017 JIM SZYMANSKI MD Ot Z97.5 PRESENCE OF (INTRAUTERINE) CONTRACEPTIVE 10/08/2017 JIM SZYMANSKI MD Ot F41.9 ANXIETY DISORDER, UNSPECIFIED 10/08/2017 JIM SZYMANSKI MD Ot R10.2 PELVIC AND PERINEAL PAIN 10/08/2017 JIM SZYMANSKI MD Ot Z85.841 PERSONAL HISTORY OF MALIGNANT NEOPLASM O 10/08/2017 JIM SZYMANSKI MD Ot Z87.19 PERSONAL HISTORY OF OTHER DISEASES OF 10/08/2017 JIM SZYMANSKI MD Ot Z88.1 ALLERGY STATUS TO OTHER ANTIBIOTIC AGENT 10/08/2017 JIM SZYMANSKI MD Ot Z90.49 ACQUIRED ABSENCE OF OTHER SPECIFIED PART 10/08/2017 JIM SZYMANSKI MD Ot Z90.722 ACQUIRED ABSENCE OF OVARIES, BILATERAL 10/08/2017 JIM SZYMANSKI MD Ot Z97.5 PRESENCE OF (INTRAUTERINE) CONTRACEPTIVE 10/12/2017 JIM SZYMANSKI MD Ot F41.9 ANXIETY DISORDER, UNSPECIFIED 10/12/2017 JIM SZYMANSKI MD Ot R10.2 PELVIC AND PERINEAL PAIN 10/12/2017 JIM SZYMANSKI MD Ot Z85.841 PERSONAL HISTORY OF MALIGNANT NEOPLASM O 10/12/2017 JIM SZYMANSKI MD Ot Z87.19 PERSONAL HISTORY OF OTHER DISEASES OF 10/12/2017 JIM SZYMANSKI MD Ot Z88.1 ALLERGY STATUS TO OTHER ANTIBIOTIC AGENT 10/12/2017 JIM SZYMANSKI MD Ot Z90.49 ACQUIRED ABSENCE OF OTHER SPECIFIED PART 10/12/2017 JIM SZYMANSKI MD, Ot Z90.722 ACQUIRED ABSENCE OF OVARIES, BILATERAL 10/12/2017 JIM SZYMANSKI MD, Ot Z97.5 PRESENCE OF (INTRAUTERINE) CONTRACEPTIVE 10/21/2017 DEEPTI MELENDEZ MD, Ot R10.84 GENERALIZED ABDOMINAL PAIN 11/13/2017 DEEPTI MELENDEZ MD, Ot R10.84 GENERALIZED ABDOMINAL PAIN Procedures Code Description Performed By Performed On [...] ABO+Rh group AP NRG Transfusion band number [id number] NR Complete blood count (CBC) with automated [...] ABO+Rh group AP NRG Transfusion band number [id number] NRG Blood group antibody screen NEGATIVE NRG [...] identification in genital specimen by aerobe culture [id number] NRG Microscopic examination by DEMIAN preparation - [...] culture - 10/31/16 19:50 Bacterial urine culture [id number] NRG COLONY COUNT 10,000/ML - 100,000/ML NRG [...] ABO+Rh group AP NRG Transfusion band number [id number] NRG Blood group antibody screen NEGATIVE NRG [...] aureus (MRSA) screening culture NEG NRG Complete urinalysis with reflex to culture - 10/06/17 22:37 Urine color determination YELLOW NRG Urine clarity determination CLEAR NRG Urine pH measurement by test strip 6 5-9 Specific gravity of urine by test strip 1.025 1.016- 1.022 Urine protein assay by test strip, semi-quantitative 1+ NEGATIVE Urine glucose detection by automated test strip NEGATIVE NEGATIVE Erythrocytes detection in urine sediment by light microscopy 5+ NEGATIVE Urine ketones detection by automated test strip NEGATIVE NEGATIVE Urine nitrite detection by test strip NEGATIVE NEGATIVE Urine total bilirubin detection by test strip NEGATIVE NEGATIVE Urine urobilinogen measurement by automated test strip (mass/volume) NORMAL NORMAL Urine leukocyte esterase detection by dipstick 1+ NEGATIVE Automated urine sediment erythrocyte count by microscopy (number/high power field) TNTC NRG Automated urine sediment leukocyte count by [...] urinalysis with reflex to culture NO NRG Urine beta human chorionic gonadotropin (hCG) measurement - 10/06/17 22:37 Urine beta human chorionic gonadotropin (hCG) measurement NEGATIVE NEGATIVE Complete blood count (CBC) with automated white blood cell (WBC) differential - 10/06/17 22:52 Blood leukocytes automated count (number/volume) 10.1 10*3/uL 4.3-11.0 Blood erythrocytes automated count (number/volume) 4.81 10*6/uL 4.35-5.85 Venous blood hemoglobin measurement (mass/volume) 15.0 g/dL 11.5-16.0 Blood hematocrit (volume fraction) 43 % 35-52 Automated erythrocyte mean corpuscular volume 90 [foz_us] 80-99 Automated erythrocyte mean corpuscular hemoglobin (mass per erythrocyte) 31 pg 25-34 Automated erythrocyte mean corpuscular hemoglobin concentration measurement ( mass/volume) 35 g/dL 32-36 Automated erythrocyte distribution width ratio 12.0 % 10.0-14.5 Automated blood platelet count (count/volume) 270 10*3/uL 130-400 Automated blood platelet mean volume measurement 10.0 [foz_us] 7.4-10.4 Automated blood neutrophils/100 leukocytes 50 % 42-75 Automated blood lymphocytes/100 leukocytes 38 % 12-44 Blood monocytes/100 leukocytes 8 % 0-12 Automated blood eosinophils/100 leukocytes 4 % 0-10 Automated blood basophils/100 leukocytes 1 % 0-10 Blood neutrophils automated count (number/volume) 5.1 10*3 1.8-7.8 Blood lymphocytes automated count (number/volume) 3.8 10*3 1.0-4.0 Blood monocytes automated count (number/volume) 0.8 10*3 0.0-1.0 Automated eosinophil count 0.4 10*3/uL 0.0-0.3 Automated blood basophil count (count/volume) 0.1 10*3/uL 0.0-0.1 Encounters ACCT No. Visit Date/Time Discharge Status Pt. Type Provider Facility Loc./Unit Complaint [id number] 07/09/2012 15:23:00 07/09/2012 23:59:59 CLS Outpatient PARISA LUCIO APRN [id number] 04/22/2012 09:10:00 04/22/2012 23:59:59 CLS Outpatient [id number] 10/22/2017 13:45:00 11/16/2017 13:54:00 DIS Outpatient DEEPTI MELENDEZ MD [facility] REHAB R GROIN PAIN [id number] 10/06/2017 22:07:00 10/06/2017 23:44:00 DIS Emergency JIM SZYMANSKI MD [facility] ER PELVIC PAIN [id number] 05/27/2017 11:08:00 05/27/2017 23:59:59 CLS Preadmit DEEPTI MELENDEZ MD [facility] REHAB L LOWER QUADRANT ABDOMEN AND GROIN PAIN [id number] 05/13/2017 11:35:00 05/14/2017 11:10:00 DIS Outpatient DEEPTI MELENDEZ MD [facility] SDC LEFT OVARIAN CYST [id number] 05/11/2017 11:36:00 05/11/2017 15:58:00 DIS Outpatient DEEPTI MELENDEZ MD [facility] PREOP LEFT OVARIAN CYST [id number] 04/17/2017 07:38:00 04/17/2017 23:59:59 CLS Outpatient YVETTE SALOMON MD [facility] RAD HETEROGENEOUS OVARIES N83.9 [id number] 04/08/2017 13:44:00 04/08/2017 23:59:59 CLS Outpatient YVETTE SALOMON MD [facility] RAD LT PELVIC PAIN [id number] 02/24/2017 09:32:00 02/24/2017 23:59:59 CLS Outpatient YVETTE SALOMON MD [facility] RAD L PELVIC PAIN [id number] 02/09/2017 22:36:00 02/10/2017 01:01:00 DIS Emergency KEEGAN RIVAS MD [facility] ER LT SIDED PELVIC PAIN,LT THIGH PAIN [id number] 12/04/2016 07:27:00 12/04/2016 13:40:00 DIS [facility] LLQ [facility] [id number] 12/03/2016 05:33:00 12/03/2016 10:17:00 DIS Outpatient FLAQUITO JONES DO [facility] PREOP CHRONIC PELVIC PAIN /LLQ PAIN [id number] 10/31/2016 18:59:00 10/31/2016 21:38:00 DIS Emergency KENDELL WRAY DO [facility] ER PELVIC PAIN [id number] 08/18/2016 16:12:00 08/18/2016 18:57:00 DIS Emergency MOSHE TRAYLOR MD [facility] ER ABD PAIN/PELVIC PAIN [id number] 05/26/2016 01:22:00 05/26/2016 03:24:00 DIS Emergency KENDELL WRAY DO [facility] ER VAGINAL BLEEDING,POSSIBLE MISCARRIAGE [id number] 05/23/2016 08:22:00 05/23/2016 10:20:00 DIS Emergency JULIANA ABEBE APRN [facility] ER VAG BLEEDING 9 WKS PREG [id number] 05/06/2016 12:29:00 05/06/2016 23:59:59 CLS Outpatient YVETTE SALOMON MD [facility] RAD 1ST TRIMESTER BLEEDING [id number] 04/24/2016 11:14:00 04/24/2016 13:05:00 DIS Emergency JULIANA ABEBE MOBILE HOMES REPAIRER [facility] ER POSS 7 WKS PREG/BLEEDING/ CRAMPING [id number] 11/06/2015 11:03:00 11/06/2015 23:59:59 CLS Outpatient YVETTE SALOMON MD [facility] RAD LEFT SIDED PELVIC PAIN, CHECK IUD [id number] 06/14/2015 11:13:00 06/14/2015 23:59:59 CLS Outpatient JOSELINE WESLEY [facility] LAB ANXIETY, DEPRESSION,PALPITATION [id number] 05/16/2015 13:35:00 05/16/2015 23:59:59 CLS Outpatient CORY NEWTON MD [facility] CARD ANXIETY,DEPRESSION, CHEST PAIN SYNDROME [id number] 05/09/2015 10:16:00 05/09/2015 23:59:59 CLS Outpatient CORY NEWTON MD [facility] CARD ANXIETY, DEPRESSION, PALPITATION [id number] 04/04/2015 20:45:00 04/04/2015 21:34:00 DIS Emergency KENDELL WRAY DO [facility] ER DIZZINESS [id number] 12/01/2014 21:21:00 12/01/2014 21:49:00 DIS Emergency PARISA WOO DO [facility] ER PELVIC PAIN [id number] 08/19/2014 18:41:00 08/19/2014 21:41:00 DIS Emergency EDUAR CABRERA [facility] ER PELVIS PAIN [id number] 07/20/2014 20:35:00 07/20/2014 22:24:00 DIS Emergency JULIANA ABEBE APRN [facility] ER PELVIC PAIN [id number] 06/01/2014 20:58:00 06/01/2014 23:41:00 DIS Emergency KENDELL WRAY DO [facility] ER ABD PAIN [id number] 05/28/2014 16:58:00 05/28/2014 18:09:00 DIS Emergency KENDELL WRAY DO [facility] ER LOWER PELVIC PAIN [id number] 05/18/2014 19:19:00 05/18/2014 21:55:00 DIS Emergency PARISA WOO DO R[place] [facility] ER VOMITING BLOOD [id number] 05/18/2014 09:48:00 05/18/2014 16:00:00 DIS Outpatient FLAQUITO JONES DO [facility] SDC LEFT LOWER QUADRANT PAIN [id number] 05/17/2014 14:20:00 05/17/2014 23:59:59 CLS Outpatient FLAQUITO JONES DO [facility] PREOP LEFT LOWER QUADRANT PAIN [id number] 08/21/2013 18:45:00 08/24/2013 09:45:00 DIS Inpatient YVETTE SALOMON MD [facility] WS INDUCTION [id number] 08/17/2013 18:24:00 08/17/2013 19:35:00 DIS Outpatient YVETTE SALOMON MD [facility] WSo LOWER ABD PAIN [id number] 07/13/2013 16:23:00 07/13/2013 23:59:59 CLS Emergency [id number] 07/13/2013 16:44:00 07/13/2013 21:05:00 DIS Outpatient YVETTE SALOMON MD [facility] WSo FALL ABD PAIN [id number] 06/24/2013 22:10:00 06/25/2013 01:15:00 DIS Outpatient YVETTE SALOMON MD [facility] WSo BACK PAIN; PELVIC PAIN [id number] 06/09/2013 18:44:00 06/09/2013 20:15:00 DIS [facility] [id number] 04/15/2013 09:38:00 04/15/2013 23:59:59 CLS Outpatient YVETTE SALOMON MD [facility] RAD FUNDAL HEIGHT DISCREPANCY [id number] 03/25/2013 14:23:00 03/25/2013 18:35:00 DIS Emergency JIM SZYMANSKI MD [facility] ER LOWER ABD PAIN/18 WKS PREG [id number] 01/31/2013 18:49:00 01/31/2013 22:46:00 DIS Emergency SHAHLA BRODERICK, EDUAR Rico [facility] ER ELEVATED HEART RATE 10 WKS [id number] 01/21/2013 10:00:00 01/21/2013 23:59:59 CLS Outpatient UMM VILLEGAS, YVETTE Rao [facility] RAD FUNDAL HEIGHT DISCREPANCY [id number] 11/28/2017 20:03:00 ACT Emergency KAMALA DASHKENDELL [facility] ER PELVIC PAIN [id number] 12/01/2014 21:22:00 Document Registration [id number] 08/01/2012 21:57:00 Document Registration [id number] 04/06/2012 14:15:00 Document Registration [id number] 03/16/2012 18:35:00 Document Registration [id number] 03/02/2012 21:16:00 Document Registration [id number] 06/11/2010 16:53:00 Document Registration [id number] 04/05/2015 08:52:57 ACT Document Registration
[2017-11-28 21:22] LABS: BASOPHILS % (AUTO) 0 % (0-10); EOSINOPHILS # (AUTO) 0.2 10^3/uL (0.0-0.3); EOSINOPHILS % (AUTO) 2 % (0-10); HEMATOCRIT 42 % (35-52); HEMOGLOBIN 14.2 G/DL (11.5-16.0); LYMPHOCYTES # (AUTO) 2.7 X 10^3 (1.0-4.0); LYMPHOCYTES % (AUTO) 28 % (12-44); MEAN CORPUSCULAR HEMOGLOBIN 31 PG (25-34); MEAN CORPUSCULAR HGB CONC 34 G/DL (32-36); MEAN CORPUSCULAR VOLUME 92 FL (80-99); MEAN PLATELET VOLUME 10.1 FL (7.4-10.4); MONOCYTES # (AUTO) 0.7 X 10^3 (0.0-1.0); MONOCYTES % (AUTO) 7 % (0-12); NEUTROPHILS # (AUTO) 6.2 X 10^3 (1.8-7.8); NEUTROPHILS % (AUTO) 63 % (42-75); PLATELET COUNT 268 10^3/uL (130-400); RED BLOOD COUNT 4.53 10^6/uL (4.35-5.85); RED CELL DISTRIBUTION WIDTH 11.9 % (10.0-14.5); WHITE BLOOD COUNT 9.8 10^3/uL (4.3-11.0)
[2017-11-28 21:23] LABS: BILIRUBIN,URINE NEGATIVE (NEGATIVE); CLARITY,URINE SLIGHTLY CLOUDY; COLOR,URINE YELLOW; GLUCOSE, URINE (UA) NEGATIVE (NEGATIVE); KETONES,URINE NEGATIVE (NEGATIVE); LEUKOCYTE ESTERASE ,URINE 2+ (NEGATIVE); NITRITE,URINE NEGATIVE (NEGATIVE); PH,URINE 6.5 (5-9); PROTEIN,URINE NEGATIVE (NEGATIVE); UROBILINOGEN,URINE NORMAL (NORMAL)
[2017-11-28 21:33] LABS: BACTERIA,URINE TRACE /HPF; RBC,URINE RARE /HPF; SQUAMOUS EPITHELIAL CELL,UR 0-2 /HPF; WBC,URINE 0-2 /HPF
[2017-11-28 21:43] LABS: ALANINE AMINOTRANSFERASE 16 U/L (0-55); ALBUMIN 4.6 GM/DL (3.2-4.5); ALKALINE PHOSPHATASE 76 U/L (40-136); BILIRUBIN,TOTAL 0.3 MG/DL (0.1-1.0); BUN/CREATININE RATIO 11; CALCIUM 9.6 MG/DL (8.5-10.1); CARBON DIOXIDE 27 MMOL/L (21-32); CHLORIDE 105 MMOL/L (98-107); CREATININE SERUM 0.74 MG/DL (0.60-1.30); GFR ESTIMATED > 60; GLUCOSE 98 MG/DL (70-105); POTASSIUM 3.8 MMOL/L (3.6-5.0); SODIUM 141 MMOL/L (135-145); TOTAL PROTEIN 7.4 GM/DL (6.4-8.2)
--- NOTE | 2017-11-28 21:43 | ED GU-Female ---
General Chief Complaint: Abdominal/GI Problems Stated Complaint: PELVIC PAIN Nursing Triage Note: worsened chronic pelvic pain. Nursing Sepsis Screen: No Definite Risk Source: patient, family (mother) Exam Limitations: no limitations History of Present Illness Date Seen by Provider: November 28, 2017 Time Seen by Provider: 21:43 Initial Comments 22-year-old female patient presents to the emergency Department with reports of chronic pelvic pain which has been worse today. Patient did undergo laparoscopic removal of a rt ovarian mass, adhesiolysis, destruction of endometriosis, left salpingo-oophorectomy, and lap appendectomy by Dr. Douglass. Timing/Duration: other (chronic pelvic pain, worse today) Severity/Quality: aching, cramping Location: suprapubic Radiation: none Activities at Onset: none Prior Genitourinary Problems: similar symptoms Modifying Factors: Worsens With Palpation Allergies and Home Medications Allergies Coded Allergies: doxycycline (Verified Allergy, Unknown, 05/11/17) Home Medications No Active Prescriptions or Reported Meds Patient Home Medication List Home Medication List Reviewed: Yes Review of Systems Constitutional: No chills, No fever, No malaise Respiratory: no symptoms reported Cardiovascular: no symptoms reported Gastrointestinal: see HPI; No constipation, No diarrhea, No loss of appetite, No melena, No nausea, No vomiting Genitourinary: see HPI; denies burning, denies discharge, denies dysuria, denies frequency, denies flank pain, denies hematuria; pain : No Musculoskeletal: no symptoms reported Skin: no symptoms reported Psychiatric/Neurological: No Symptoms Reported Endocrine: No Symptoms Reported All Other Systemes Reviewed Negative Unless Noted: Yes (Negative excepted noted.) Past Cqtxtyd-Izyion-Hggdwa Hx Patient Social History Alcohol Use: Occasionally Uses Recreational Drug Use: No Smoking Status: Never a Smoker 2nd Hand Smoke Exposure: No Recent Foreign Travel: No Contact w/Someone Who Travel: No Recent Infectious Disease Expo: No Recent Hopitalizations: No Immunizations Up To Date Tetanus Booster (TDap): Less than 5yrs Date of Pneumonia Vaccine: Apr 28, 2011 Date of Influenza Vaccine: Jun 07, 2016 Seasonal Allergies Seasonal Allergies: No Past Medical History Surgeries: Yes (knee sx x4, wisdom teeth, DXLS X4, PELVIC "SCOPE" ) Abdominal, Appendectomy, Oophorectomy, Orthopedic Respiratory: No Cardiac: No Neurological: No : No Last Menstrual Period: Nov 12, 2017 Hx : 2 Hx Para: 1 Hx Total # of Abortions (Sp): 1 Reproductive Disorders: Yes (CHRONIC PELVIC PAIN) Female Reproductive Disorders: Denies, Endometriosis, Ovarian Cyst PHARMACISTS History: IUD Sexually Transmitted Disease: No HIV/AIDS: No Genitourinary: No Gastrointestinal: No Musculoskeletal: No Endocrine: No HEENT: No Loss of Vision: Bilateral Hearing Impairment: Denies Cancer: No Psychosocial: Yes Anxiety Integumentary: No Blood Disorders: No Adverse Reaction/Blood Tranf: No (N/A) Family Medical History Reviewed Nursing Family Hx Cancer (father has terminal brain cancer. ) 03 FATHER Family history: Hypertension (father ) 03 FATHER Hypercholesterolemia 03 MOTHER No Family History of: Abdominal aortic aneurysm [place]'s disease Alcoholism Aphasia Cancer Physical Exam Vital Signs Capillary Refill : Less Than 3 Seconds General Appearance: WD/WN, no apparent distress HEENT: PERRL/EOMI, pharynx normal Neck: supple, normal inspection Cardiovascular: regular rate, rhythm, no murmur Respiratory: lungs clear, normal breath sounds, no respiratory distress, no accessory muscle use Gastrointestinal: normal bowel sounds, soft, no organomegaly; No distended, No guarding, No rebound; tenderness (patient reports very mild suprapubic tendernesss.); No mass Back: normal inspection, no CVA tenderness Extremities: normal capillary refill Neurologic/Psychiatric: alert, normal mood/affect, oriented x 3 Skin: normal color, warm/dry Progress/Results/Core Measures Suspected Sepsis Recent Fever Within 48 Hours: No Infection Criteria Present: None New/Unexplained Altered Menta: No Sepsis Screen: No Definite Risk SIRS Temperature:98.3 Pulse: 115 Respiratory Rate: 18 Blood Pressure 137 /92 Mean: 107 Results/Orders Lab Results My Orders Vital Signs/I&O Capillary Refill : Less Than 3 Seconds Blood Pressure Mean: 107 Point of Care Testing Urine -Bedside: Negative Departure Communication (Admissions) All laboratory findings discussed with the patient. Patient refuses pelvic exam in the emergency department. States she would like to follow-up with Dr. Douglass as an outpatient for recheck and pelvic exam. I feel that this is reasonable as patient is afebrile, does not have an elevated WBC count, and is mildly tender on exam. Patient instructed to follow-up with Dr. Douglass this week as an outpatient for a recheck and pelvic exam. Patient verbalized understanding and agrees with the treatment plan. Impression Primary Impression: Chronic pelvic pain in female Disposition: 01 HOME, SELF-CARE Condition: Improved Departure-Patient Inst. Decision time for Depature: 21:57 Referrals: DEEPTI DOUGLASS MD (PCP/Family) Primary Care Physician Patient Instructions: Acute Abdomen (Belly Pain), Adult (DC) Add. Discharge Instructions: All discharge instructions reviewed with patient and/or family. Voiced understanding. Continue usual home medications. Ibuprofen 800 mg by mouth every 8 hours as needed for pain. Follow-up with Dr. Douglass this week for recheck. Call for appointment time Thursday. Return to the emergency department for worsened symptoms or any other concerns. Scripts No Active Prescriptions or Reported Meds EDUAR GALE November 28, 2017 21:43
[2017-11-28 22:01] VITALS: BP 146/86
== END 2017-11-28 21:59 | disposition home or self-care (01) ==
LOC: EDUNIT# 20:01 → ER 20:03
DX: G89.29 Other chronic pain (principal); R10.2 Pelvic and perineal pain; F41.9 Anxiety disorder, unspecified; Z87.42 Personal history of other diseases of the female genital tract; Z97.5 Presence of (intrauterine) contraceptive device; Z90.49 Acquired absence of other specified parts of digestive tract; Z88.1 Allergy status to other antibiotic agents; Z80.8 Family history of malignant neoplasm of other organs or systems
CPT/HCPCS: 36415; 80053; 81000; 84703; 85025; 86141; 99283

== ENCOUNTER → 2018-04-14 | Outpatient (CLI) | payer MEDICAID ==
[~2018-04-14] MED LIST changes: +HYDR-4226 PO; -HYDR-757 PO; -OXYC-202 PO; +OXYC1TAB12 PO
--- NOTE | 2018-04-14 16:03 | Diagnostic Imaging Report ---
PROCEDURE: US Non-ob pelvis comp/trans. TECHNIQUE: Multiple real-time grayscale images were obtained of the pelvis in various projections endovaginally. Transabdominal imaging was also performed. INDICATION: Pelvic pain. FINDINGS: The uterus measures 6.6 x 3.7 x 3.1 cm. An IUD appears to be appropriately centered in the endometrial canal. No myometrial mass is seen. Endometrium is 2 mm in thickness. Left ovary is surgically absent. The right ovary measures 3.6 x 3.2 x 4.0 cm. Right ovary does contain a 2.9 x 2.5 cm cyst. There is blood flow to the right ovary. No other adnexal mass is seen. There is no free fluid. IMPRESSION: 1. IUD appears to be appropriately centered in the endometrial canal. 2. Status post left oophorectomy. 3. 2.9 cm right ovarian cyst. Dictated by: Dictated on workstation # [id number]
== END ==
LOC: RAD 14:24
PROVIDERS: ATTEND Obstetrics & Gynecology
DX: N83.201 Unspecified ovarian cyst, right side (principal); Z97.5 Presence of (intrauterine) contraceptive device; Z90.721 Acquired absence of ovaries, unilateral
CPT/HCPCS: 76830; 76856